=== PATIENT | female | born 1950 | race Caucasian/White ===

== ENCOUNTER 2018-06-25 10:49 | Inpatient (IN) | payer MEDICARE ==
[~2018-06-25] VITALS: Ht 162.6 cm; Wt 53.2 kg
[2018-06-25 11:30] LABS: BASO % 1 % (0-3); EOS % 0 % (0-3); HEMATOCRIT 43.7 % (36.0-47.0); HEMOGLOBIN 14.7 g/dL (12.0-15.5); LYMPH # 1.3 x10^3/uL (1.0-4.8); LYMPH % 30 % (24-48); MEAN CORPUSCULAR HEMOGLOBIN 30 pg (25-35); MEAN CORPUSCULAR HGB CONC 34 g/dL (31-37); MEAN CORPUSCULAR VOLUME 90 fL (79-100); MONO # 0.4 x10^3/uL (0.0-1.1); MONO % 10 % (0-9); NEUT # 2.6 x10^3uL (1.8-7.7); NEUT % 59 % (31-73); PLATELET COUNT 201 x10^3/uL (140-400); RED BLOOD COUNT 4.87 x10^6/uL (3.50-5.40); RED CELL DISTRIBUTION WIDTH 13.5 % (11.5-14.5); WHITE BLOOD COUNT 4.4 x10^3/uL (4.0-11.0)
[2018-06-25 11:38] LABS: BACTERIA,URINE MOD /HPF (0-FEW); BILIRUBIN,URINE NEG (NEG); CLARITY,URINE HAZY; COLOR,URINE AMBER; GLUCOSE,URINE NEG (NEG); NITRITE,URINE NEG (NEG); RBC,URINE 0 /HPF (0-2); UROBILINOGEN,URINE 2 mg/dL (0.2 mg/dL)
[2018-06-25 11:39] LABS: SQUAMOUS EPITHELIAL CELL,UR FEW /LPF
[2018-06-25 11:41] LABS: ALBUMIN 4.4 g/dL (3.4-5.0); ALBUMIN/GLOBULIN RATIO 1.5 (1.0-1.7); CREATININE 0.7 mg/dL (0.6-1.0); GFR 83.2; MAGNESIUM 2.2 mg/dL (1.8-2.4); POTASSIUM 3.4 mmol/L (3.5-5.1); TOTAL PROTEIN 7.4 g/dL (6.4-8.2)
--- NOTE | 2018-06-25 12:06 | PHYS DOC ---
Past History Past Medical History: Cancer, Dementia, High Cholesterol, Hypertension, CA Alcohol Use: None Drug Use: None Adult General Chief Complaint Chief Complaint: PSYCH EVALUATION HPI HPI 67-year-old female who was diagnosed with dementia about 3 years ago presents with some behavior issues at home. Patient has been yelling screaming trying to escape the house and very accusatory. Because of these behaviors she is not able to be handled at home. She had a urinary tract infection about 3 weeks ago and took antibiotics for this. She has not had any fever recently. She's not felt poorly recently. She's actually been eating better as of late. Family states she has lost quite a bit of weight over the last several months.[] Review of Systems Review of Systems Unable to provide review of systems secondary to dementia. Allergies Allergies Allergies Coded Allergies Type Severity Reaction Last Updated Verified Sulfa (Sulfonamide Antibiotics) Allergy Unknown 06/25/18 Yes Physical Exam Physical Exam Constitutional: Frail elderly female that appears nontoxic. [] HENT: Normocephalic, atraumatic, bilateral external ears normal, oropharynx moist, no oral exudates, nose normal. [] Eyes: PERRLA, EOMI, conjunctiva normal, no discharge. [] Neck: Normal range of motion, no tenderness, supple, no stridor. [] Cardiovascular:Heart rate regular rhythm, no murmur [] Lungs & Thorax: Bilateral breath sounds clear to auscultation [] Abdomen: Bowel sounds normal, soft, no tenderness, no masses, no pulsatile masses. [] Skin: Warm, dry, no erythema, no rash. [] Back: No tenderness, no CVA tenderness. [] Extremities: No tenderness, no cyanosis, no clubbing, ROM intact, no edema. [] Neurologic: Awake and alert but not oriented, normal motor function, normal sensory function, no focal deficits noted. [] Psychologic: Unable to assess. [] Current Patient Data Vital Signs Vital Signs Date Time Temp Pulse Resp B/P (MAP) Pulse Ox O2 Delivery O2 Flow Rate FiO2 06/25/18 11:10 97.4 67 18 99 Room Air Lab Results Laboratory Tests Test 06/25/18 11:06 06/25/18 11:17 Urine Collection Type Unknown Urine Color Lyndsey Urine Clarity Hazy Urine pH 8.5 Urine Specific [place] 1.020 Urine Protein 30 mg/dl (NEG-TRACE) Urine Glucose (UA) Neg mg/dL (NEG) Urine Ketones (Stick) Trace mg/dL (NEG) Urine Blood Neg (NEG) Urine Nitrite Neg (NEG) Urine Bilirubin Neg (NEG) Urine Urobilinogen Dipstick 2 mg/dL (0.2 mg/dL) Urine Leukocyte Esterase Large (NEG) Urine RBC 0 /HPF (0-2) Urine WBC 11-20 /HPF (0-4) Urine Squamous Epithelial Cells Few /LPF Urine Bacteria Mod /HPF (0-FEW) Urine Mucus Mod /LPF White Blood Count 4.4 x10^3/uL (4.0-11.0) Red Blood Count 4.87 x10^6/uL (3.50-5.40) Hemoglobin 14.7 g/dL (12.0-15.5) Hematocrit 43.7 % (36.0-47.0) Mean Corpuscular Volume 90 fL (79-100) Mean Corpuscular Hemoglobin 30 pg (25-35) Mean Corpuscular Hemoglobin Concent 34 g/dL (31-37) Red Cell Distribution Width 13.5 % (11.5-14.5) Platelet Count 201 x10^3/uL (140-400) Neutrophils (%) (Auto) 59 % (31-73) Lymphocytes (%) (Auto) 30 % (24-48) Monocytes (%) (Auto) 10 % (0-9) H Eosinophils (%) (Auto) 0 % (0-3) Basophils (%) (Auto) 1 % (0-3) Neutrophils # (Auto) 2.6 x10^3uL (1.8-7.7) Lymphocytes # (Auto) 1.3 x10^3/uL (1.0-4.8) Monocytes # (Auto) 0.4 x10^3/uL (0.0-1.1) Eosinophils # (Auto) 0.0 x10^3/uL (0.0-0.7) Basophils # (Auto) 0.0 x10^3/uL (0.0-0.2) Sodium Level 144 mmol/L (136-145) Potassium Level 3.4 mmol/L (3.5-5.1) L Chloride Level 106 mmol/L (98-107) Carbon Dioxide Level 29 mmol/L (21-32) Anion Gap 9 (6-14) Blood Urea Nitrogen 12 mg/dL (7-20) Creatinine 0.7 mg/dL (0.6-1.0) Estimated GFR (Cockcroft-Gault) 83.2 BUN/Creatinine Ratio 17 (6-20) Glucose Level 114 mg/dL (70-99) H Calcium Level 10.0 mg/dL (8.5-10.1) Magnesium Level 2.2 mg/dL (1.8-2.4) Total Bilirubin 1.0 mg/dL (0.2-1.0) Aspartate Amino Transferase (AST) 18 U/L (15-37) Alanine Aminotransferase (ALT) 17 U/L (14-59) Alkaline Phosphatase 62 U/L (46-116) Total Protein 7.4 g/dL (6.4-8.2) Albumin 4.4 g/dL (3.4-5.0) Albumin/Globulin Ratio 1.5 (1.0-1.7) EKG EKG [] Radiology/Procedures Radiology/Procedures [] Course & Med Decision Making Course & Med Decision Making Pertinent Labs and Imaging studies reviewed. (See chart for details) [ED course: Evaluation reveals a 67-year-old female with dementia. She did have urinary tract infection a few weeks ago. It looks like she still has a few white blood cells and some bacteria in her urine so go ahead and] Dragon Disclaimer Dragon Disclaimer This electronic medical record was generated, in whole or in part, using a voice recognition dictation system. Departure Departure: Impression: Primary Impression: Dementia Additional Impression: UTI (urinary tract infection) Disposition: 09 ADMITTED INPATIENT Admitting Physician: Joon Alvarez Condition: STABLE Referrals: LIA GALAN MD (PCP) Problem Qualifiers Primary Impression: Dementia Dementia type: Alzheimer's disease Alzheimer's disease onset: early-onset Dementia behavioral disturbance: with behavioral disturbance Qualified Codes: G30.0 - Alzheimer's disease with early onset; F02.81 - Dementia in other diseases classified elsewhere with behavioral disturbance VIRGINIA ROMERO DO Jun 25, 2018 12:06
[2018-06-25] MEDS ORDERED: NITROFURANTOIN MONOHYD/M-CRYST 100 MG CAPSULE. PO ONE (12:30)
[2018-06-25] MEDS ORDERED: LISI-338 PO (14:03)
[2018-06-25] MEDS ORDERED: LORA0.5T PO (14:03)
[2018-06-25] MEDS ORDERED: MIRT15TA3 PO (14:03)
[2018-06-25] MEDS ORDERED: ASPI-630 PO (14:03)
[2018-06-25] MEDS ORDERED: METO25TA4 PO (14:03)
[2018-06-25] MEDS ORDERED: ATOR40TA59 PO (14:03)
[2018-06-25 14:30] VITALS: BP 122/75
[2018-06-25] MEDS ORDERED: MAG HYDROX/AL HYDROX/SIMETH 30 ML ORAL.SUSP PO PRN (15:00)
[2018-06-25] MEDS ORDERED: MAGNESIUM HYDROXIDE 2,400 MG/30 ML ORAL.SUSP. PO PRN (15:00)
[2018-06-25] MEDS ORDERED: ACETAMINOPHEN 325 MG TABLET PO PRN (15:00)
[2018-06-25] MEDS ORDERED: METHYL SALICYLATE/MENTHOL TOPICAL OINTMENT 29GM TUBE. TP PRN (15:00)
[2018-06-25 16:07] VITALS: BP 120/76
[2018-06-25] MEDS: MIRTAZAPINE 15 MG TABLET PO SCH (20:55)
[2018-06-25] MEDS: METOPROLOL TART IMMED RELEASE 25 MG TABLET PO SCH (20:55)
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
[2018-06-26 02:12] LABS: THYROXINE 8.7 ug/dL (4.5-12.0)
[2018-06-26 06:13] LABS: HEMOGLOBIN A1C 5.3 % (4.8-5.6)
[2018-06-26 07:00] VITALS: BP 102/68
[2018-06-26] MEDS: LORazepam 0.5 MG TABLET PO SCH (08:00)
[2018-06-26 09:37] LABS: BASO % 1 % (0-3); EOS % 0 % (0-3); HEMATOCRIT 46.1 % (36.0-47.0); HEMOGLOBIN 15.2 g/dL (12.0-15.5); LYMPH # 1.3 x10^3/uL (1.0-4.8); LYMPH % 15 % (24-48); MEAN CORPUSCULAR HEMOGLOBIN 30 pg (25-35); MEAN CORPUSCULAR HGB CONC 33 g/dL (31-37); MEAN CORPUSCULAR VOLUME 90 fL (79-100); MONO # 1.1 x10^3/uL (0.0-1.1); MONO % 13 % (0-9); NEUT # 6.1 x10^3uL (1.8-7.7); NEUT % 72 % (31-73); PLATELET COUNT 219 x10^3/uL (140-400); RED BLOOD COUNT 5.15 x10^6/uL (3.50-5.40); RED CELL DISTRIBUTION WIDTH 13.7 % (11.5-14.5); WHITE BLOOD COUNT 8.5 x10^3/uL (4.0-11.0)
[2018-06-26 09:51] LABS: ALBUMIN 4.6 g/dL (3.4-5.0); ALBUMIN/GLOBULIN RATIO 1.4 (1.0-1.7); CALCIUM 10.3 mg/dL (8.5-10.1); CREATININE 0.6 mg/dL (0.6-1.0); GFR 99.4; MAGNESIUM 2.1 mg/dL (1.8-2.4); POTASSIUM 3.6 mmol/L (3.5-5.1); TOTAL BILIRUBIN 0.8 mg/dL (0.2-1.0); TOTAL PROTEIN 7.8 g/dL (6.4-8.2)
[2018-06-26] MEDS: ASPIRIN 81 MG TAB.CHEW PO SCH (10:27)
[2018-06-26] MEDS: ATORVASTATIN CALCIUM 20 MG TABLET PO SCH (10:27)
[2018-06-26] MEDS: LISINOPRIL 5 MG TABLET. PO SCH (10:28)
[2018-06-26] MEDS: METOPROLOL TART IMMED RELEASE 25 MG TABLET PO SCH ×2 (10:28→20:32)
[2018-06-26 16:53] VITALS: BP 113/77
[2018-06-26] MEDS: MIRTAZAPINE 15 MG TABLET PO SCH (20:31)
[2018-06-26] MEDS: OLANZapine 10 MG TABLET PO SCH (20:32)
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
[2018-06-27] MEDS: ATORVASTATIN CALCIUM 20 MG TABLET PO SCH (08:11)
[2018-06-27] MEDS: METOPROLOL TART IMMED RELEASE 25 MG TABLET PO SCH ×2 (08:11→20:08)
[2018-06-27] MEDS: ASPIRIN 81 MG TAB.CHEW PO SCH (08:11)
[2018-06-27] MEDS: LISINOPRIL 5 MG TABLET. PO SCH (08:12)
[2018-06-27] MEDS: LORazepam 0.5 MG TABLET PO SCH (08:14)
[2018-06-27 10:14] LABS: THYROID STIM HORMONE (TSH) 0.503 uIU/mL (0.358-3.740)
[2018-06-27 10:48] VITALS: BP 113/77
--- NOTE | 2018-06-27 12:40 | EKG ---
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
[2018-06-27 16:16] VITALS: BP 96/64
[2018-06-27] MEDS: OLANZapine 10 MG TABLET PO SCH (20:07)
[2018-06-27] MEDS: MIRTAZAPINE 15 MG TABLET PO SCH (20:07)
--- NOTE | 2018-06-27 23:41 | PN ---
DATE: 06/27/2018 SUBJECTIVE: The patient was seen today, met with the staff, chart reviewed. The patient apparently has made some progress. Still agitated easily and difficult to redirect, apparently she did not sleep well last night. OBSERVATION: VITAL SIGNS: Temperature 97.5, blood pressure 96/64, pulse 81, respiration 18, O2 sat 98%. The patient's appetite is fair. MEDICATIONS: The patient's current medications include mirtazapine, was increased from 15 to 22.5 mg at night because she is not sleeping well; Zyprexa 10 mg at night, lorazepam 0.5 mg daily. She is also on olanzapine 2.5 mg q. 2 hours p.r.n. The patient is not having any major side effects. The patient's lab reviewed. Glucose level was 120. Hemoglobin A1c 5.3, calcium 10.3. Otherwise no lab abnormalities. ASSESSMENT: 1. Dementia, most likely Alzheimer's with behavior problems, with delusions and depression. 2. Impulse control disorder, unspecified. PLAN: To continue with the treatment. We will consider adding a mood stabilizer if the patient continues to show major behavior problems. PAOLA MENDIOLA MD DR: FERNANDO/reji JOB#: [id number] / [id number]
[2018-06-28 05:52] VITALS: BP 117/81
[2018-06-28] MEDS: LISINOPRIL 5 MG TABLET. PO SCH (08:17)
[2018-06-28] MEDS: ASPIRIN 81 MG TAB.CHEW PO SCH (08:17)
[2018-06-28] MEDS: METOPROLOL TART IMMED RELEASE 25 MG TABLET PO SCH ×2 (08:18→19:11)
[2018-06-28] MEDS: ATORVASTATIN CALCIUM 20 MG TABLET PO SCH (08:18)
[2018-06-28] MEDS: LORazepam 0.5 MG TABLET PO SCH (08:20)
[2018-06-28 16:10] VITALS: BP 98/66
[2018-06-28] MEDS: OLANZapine 10 MG TABLET PO SCH (19:11)
[2018-06-28] MEDS: MIRTAZAPINE 15 MG TABLET PO SCH (19:12)
[2018-06-28] MEDS: CEFDINIR 300 MG CAPSULE PO SCH (20:02)
[2018-06-28] MEDS: LORazepam 0.5 MG TABLET PO PRN (21:21)
--- NOTE | 2018-06-28 22:58 | PN ---
DATE: 06/28/2018 SUBJECTIVE: The patient was seen today, met with the staff, chart reviewed. Staff reports the patient having some problems with her gait and also stooping to one side. The patient did not have any falls. She continues to be agitated easily, difficult to redirect. OBJECTIVE: VITAL SIGNS: Temperature 96.8, blood pressure 117/81, pulse 74, respiration 18, O2 sat 93%. Slept only 2 hours last night. CURRENT MEDICATIONS: The patient's current medications include Zyprexa 10 mg at night, lorazepam 0.5 mg daily, mirtazapine 22.5 mg at night and also olanzapine 2.5 mg q. 2-4 hours p.r.n. The patient is not having any other side effects. LABORATORY DATA: The patient's lab reviewed. ASSESSMENT: Dementia, most likely Alzheimer's with behavior problems with the delusions and depression. Impulse control disorder, unspecified. PLAN: To continue with the treatment. PAOLA MENDIOLA MD DR: FERNANDO/reji JOB#: [id number] / [id number]
[2018-06-29 05:45] VITALS: BP 90/54
[2018-06-29] MEDS: METOPROLOL TART IMMED RELEASE 25 MG TABLET PO SCH ×2 (07:18→19:25)
[2018-06-29] MEDS: CEFDINIR 300 MG CAPSULE PO SCH ×2 (07:18→19:26)
[2018-06-29] MEDS: ASPIRIN 81 MG TAB.CHEW PO SCH (07:18)
[2018-06-29] MEDS: ATORVASTATIN CALCIUM 20 MG TABLET PO SCH (07:18)
[2018-06-29] MEDS: LISINOPRIL 5 MG TABLET. PO SCH (07:19)
[2018-06-29] MEDS: LORazepam 0.5 MG TABLET PO SCH (07:22)
[2018-06-29] MEDS: LORazepam 0.5 MG TABLET PO PRN (11:20)
[2018-06-29 16:04] VITALS: BP 119/78
--- NOTE | 2018-06-29 16:15 | PN ---
DATE: 06/29/2018 SUBJECTIVE: The patient was seen today, met with the staff, chart reviewed. The patient's behavior remains the same, tends to wander, confused, periods of agitation and difficult to redirect. OBSERVATION: VITAL SIGNS: Temperature 97.2, blood pressure 90/54, pulse 64, respirations 20, O2 sat 95%. Slept about 6 hours last night. The patient is not presenting with any major medical issues at this time. No recent falls. The patient's appetite has improved. MEDICATIONS: The patient's current medications include Zyprexa 10 mg at night, lorazepam 0.5 mg daily, mirtazapine 22.5 mg at night, and olanzapine 2.5 mg q. 24 hours p.r.n. The patient's lab reviewed. ASSESSMENT: 1. Dementia, most likely Alzheimer's with behavior problems, delusions and depression. 2. Impulse control disorder, unspecified. PLAN: To continue with the treatment. PAOLA MENDIOLA MD DR: FERNANDO/reji JOB#: [id number] / [id number]
[2018-06-29] MEDS: MIRTAZAPINE 15 MG TABLET PO SCH (19:26)
[2018-06-29] MEDS: OLANZapine 10 MG TABLET PO SCH (19:37)
[2018-06-29] MEDS: LACTOBACILLUS RHAMNOSUS GG 1 CAPSULE. PO SCH (19:37)
[2018-06-30 05:14] VITALS: BP 125/94
[2018-06-30] MEDS: LORazepam 0.5 MG TABLET PO PRN (05:51)
[2018-06-30] MEDS: METOPROLOL TART IMMED RELEASE 25 MG TABLET PO SCH ×3 (07:22→19:44)
[2018-06-30] MEDS: LACTOBACILLUS RHAMNOSUS GG 1 CAPSULE. PO SCH ×3 (07:23→19:43)
[2018-06-30] MEDS: ASPIRIN 81 MG TAB.CHEW PO SCH ×2 (07:23→08:00)
[2018-06-30] MEDS: CEFDINIR 300 MG CAPSULE PO SCH ×3 (07:23→19:43)
[2018-06-30] MEDS: ATORVASTATIN CALCIUM 20 MG TABLET PO SCH ×2 (07:23→09:00)
[2018-06-30] MEDS: LISINOPRIL 5 MG TABLET. PO SCH ×2 (07:23→09:00)
[2018-06-30] MEDS: LORazepam 0.5 MG TABLET PO SCH (07:24)
[2018-06-30 15:14] VITALS: BP 127/89
[2018-06-30] MEDS: MIRTAZAPINE 15 MG TABLET PO SCH (19:42)
[2018-06-30] MEDS: OLANZapine 10 MG TABLET PO SCH (19:43)
[2018-06-30] MEDS: DIVALPROEX 125 MG CAP.SPRINK PO SCH (19:48)
[2018-06-30] MEDS: BENZTROPINE MESYLATE 0.5 MG TABLET PO SCH (19:48)
--- NOTE | 2018-06-30 22:23 | PDOC ---
Exam Note: Estuardo Note: Please also refer to the separate dictated note~for this date of service dictated separately. Discussed the patient with Nursing staff reviewed the chart.~Reviewed interim history and current functioning. Reviewed vital signs,~ Labs/ Radiology~and current medications noted below. Continue current treatment with the changes noted in the dictated addendum note Assessment: Vital Signs: Vital Signs Date Time Temp Pulse Resp B/P (MAP) Pulse Ox O2 Delivery O2 Flow Rate FiO2 06/30/18 19:44 101 127/89 06/30/18 15:14 97.0 18 96 Room Air I&O Intake and Output 06/30/18 07:00 Intake Total 480 ml Balance 480 ml Intake Oral 480 ml Current Medications: Meds: Current Medications Nitrofurantoin Macrocrystals (Macrobid) 100 mg 1X ONCE PO Last administered on 06/25/18at 12:23; Start 06/25/18 at 12:30; Stop 06/25/18 at 12:31; Status DC Metoprolol Tartrate (Lopressor) 25 mg BID PO Last administered on 06/30/18at 19: 44; Start 06/25/18 at 21:00 Aspirin (Children'S Aspirin) 81 mg DAILYWBKFT PO Last administered on at 07:18; Start 06/26/18 at 08:00 Lisinopril (Prinivil) 5 mg DAILY PO Last administered on 06/28/18at 08:17; Start 06/26/18 at 09:00 Atorvastatin Calcium (Lipitor) 40 mg DAILY PO Last administered on 06/29/18at 07 :18; Start 06/26/18 at 09:00 Lorazepam (Ativan) 0.5 mg DAILY PO Last administered on 06/30/18at 07:24; Start 06/26/18 at 09:00 Mirtazapine (Remeron) 15 mg QHS PO Last administered on 06/26/18at 20:31; Start 06/25/18 at 21:00; Stop 06/27/18 at 16:44; Status DC Acetaminophen (Tylenol) 650 mg PRN Q6HRS PRN PO PAIN / TEMP; Start 06/25/18 at 15:00 Multi-Ingredient Ointment (Analgesic [place]) 1 bunny PRN QID PRN TP MUSCLE PAIN; Start 06/25/18 at 15:00 Al Hydroxide/Mg Hydroxide (Mylanta Plus Xs) 15 ml PRN AFTMEALHC PRN PO DYSPEPSIA; Start 06/25/18 at 15:00 Magnesium Hydroxide (Milk Of Magnesia) 2,400 mg PRN QHS PRN PO CONSTIPATION; Start 06/25/18 at 15:00 Olanzapine (ZyPREXA ZYDIS) 2.5 mg PRN DAILY PRN PO agitation/anxiey Last administered on 06/25/18at 20:55; Start 06/25/18 at 17:00; Stop 06/25/18 at 23:25 ; Status DC Olanzapine (ZyPREXA ZYDIS) 2.5 mg PRN Q2HR PRN PO agitation/anxiey Last administered on 06/30/18 05:51; Start 06/25/18 at 23:30 Lorazepam (Ativan) 0.5 mg PRN Q4HRS PRN PO ANXIETY / AGITATION Last administered on 06/30/18 05:51; Start 06/25/18 at 23:30 Olanzapine (ZyPREXA) 10 mg HS PO Last administered on 06/30/18at 19:43; Start at 21:00 Mirtazapine (Remeron) 22.5 mg QHS PO Last administered on 06/30/18 19:42; Start 06/27/18 at 21:00 Cefdinir (Omnicef) 300 mg BID PO Last administered on 06/30/18 19:43; Start at 21:00; Stop 07/06/18 at 20:59 Lactobacillus Rhamnosus (Culturelle) 1 cap BID PO Last administered on 19:43; Start 06/29/18 at 21:00 Benztropine Mesylate (Cogentin) 0.5 mg BID PO Last administered on 06/30/18 19 :48; Start 06/30/18 at 21:00 Divalproex Sodium (Depakote Sprinkles) 125 mg BID PO Last administered on 19:48; Start 06/30/18 at 21:00 Active Scripts Active Reported Mirtazapine 15 Mg Tablet 15 Mg PO QHS Metoprolol Tartrate 25 Mg Tablet 25 Mg PO BID Lorazepam 0.5 Mg Tablet 0.5 Mg PO DAILY Lisinopril 5 Mg Tablet 5 Mg PO DAILY Atorvastatin Calcium 40 Mg Tablet 40 Mg PO DAILY Aspirin 81 Mg Tab.chew 81 Mg PO DAILY I have reviewed the current psychotropics carefully including drug interactions. Risk benefit ratio favors no change other than as noted in my dictated progress note. COLTON TAYLOR MD Jun 30, 2018 22:23
--- NOTE | 2018-06-30 23:30 | PN ---
DATE: 06/30/2018 SUBJECTIVE: The patient was seen today, met with the staff, chart reviewed. The patient continues to have problems with behaviors, tends to become aggressive at times, decreased appetite and also the patient has some spasm of the upper extremities, tends to fall to one side. The patient does not have any other signs of EPS. The patient has been a management problem. OBSERVATION: VITAL SIGNS: Temperature 97.5, blood pressure 125/94, pulse 73, respirations 16, O2 sat 96%. Slept about 5 hours last night. MEDICATIONS: The patient's current medications include Zyprexa 10 mg at night, lorazepam 0.5 mg daily, mirtazapine 22.5 mg at night, and olanzapine 2.5 mg q. 24 hours p.r.n. The patient's lab reviewed. ASSESSMENT: 1. Dementia, most likely Alzheimer's with behavior problems, delusions and depression. 2. Impulse control disorder, unspecified. PLAN: Continue with the treatment and also we started on Cogentin 0.5 mg b.i.d. for her muscle spasms and stiffness. The patient also started on Depakote Sprinkles 125 mg b.i.d. PAOLA MENDIOLA MD DR: FERNANDO/reji JOB#: [id number] / [id number]
[2018-07-01 06:25] VITALS: BP 110/62
[2018-07-01] MEDS: ATORVASTATIN CALCIUM 20 MG TABLET PO SCH (07:18)
[2018-07-01] MEDS: CEFDINIR 300 MG CAPSULE PO SCH ×2 (07:18→19:14)
[2018-07-01] MEDS: BENZTROPINE MESYLATE 0.5 MG TABLET PO SCH ×2 (07:18→19:13)
[2018-07-01] MEDS: LISINOPRIL 5 MG TABLET. PO SCH (07:19)
[2018-07-01] MEDS: ASPIRIN 81 MG TAB.CHEW PO SCH (07:19)
[2018-07-01] MEDS: DIVALPROEX 125 MG CAP.SPRINK PO SCH ×2 (07:19→19:14)
[2018-07-01] MEDS: METOPROLOL TART IMMED RELEASE 25 MG TABLET PO SCH ×2 (07:19→19:14)
[2018-07-01] MEDS: LACTOBACILLUS RHAMNOSUS GG 1 CAPSULE. PO SCH ×2 (07:19→19:14)
[2018-07-01] MEDS: LORazepam 0.5 MG TABLET PO SCH ×2 (07:23→15:59)
[2018-07-01] MEDS ORDERED: IV DEXTROSE 5%-LACT RINGERS 1,000 ML IV ONE (17:30)
[2018-07-01 17:33] VITALS: BP 88/64
[2018-07-01 17:43] LABS: BASO % 0 % (0-3); EOS % 0 % (0-3); HEMOGLOBIN 13.9 g/dL (12.0-15.5); LYMPH # 1.4 x10^3/uL (1.0-4.8); LYMPH % 18 % (24-48); MEAN CORPUSCULAR HEMOGLOBIN 30 pg (25-35); MEAN CORPUSCULAR HGB CONC 33 g/dL (31-37); MEAN CORPUSCULAR VOLUME 90 fL (79-100); MONO # 0.8 x10^3/uL (0.0-1.1); MONO % 10 % (0-9); NEUT # 5.7 x10^3uL (1.8-7.7); NEUT % 72 % (31-73); PLATELET COUNT 208 x10^3/uL (140-400); RED BLOOD COUNT 4.66 x10^6/uL (3.50-5.40); RED CELL DISTRIBUTION WIDTH 13.4 % (11.5-14.5); WHITE BLOOD COUNT 7.9 x10^3/uL (4.0-11.0)
[2018-07-01 18:10] LABS: ALBUMIN 3.8 g/dL (3.4-5.0); ALBUMIN/GLOBULIN RATIO 1.3 (1.0-1.7); CALCIUM 9.9 mg/dL (8.5-10.1); CREATININE 0.9 mg/dL (0.6-1.0); GFR 62.3; POTASSIUM 3.3 mmol/L (3.5-5.1); TOTAL BILIRUBIN 0.8 mg/dL (0.2-1.0); TOTAL PROTEIN 6.7 g/dL (6.4-8.2)
[2018-07-01] MEDS ORDERED: POTASSIUM CHLORIDE 20 MEQ TABLET.ER. PO ONE (18:30)
[2018-07-01] MEDS: MIRTAZAPINE 15 MG TABLET PO SCH (19:15)
[2018-07-01] MEDS: OLANZapine 10 MG TABLET PO SCH (19:15)
--- NOTE | 2018-07-01 22:11 | PDOC ---
Exam Note: Estuardo Note: "This is a late entry for 06/30/18. The template note for 06/30/18 was completed in error and should be disregarded." Please also refer to the separate dictated note~for this date of service dictated separately.~Patient seen individually. Discussed the patient with Nursing staff reviewed the chart.~ Reviewed interim history and current functioning. Reviewed vital signs,~Labs/ Radiology~and current medications noted below. Continue current treatment with the changes noted in the dictated addendum note Assessment: Vital Signs: Vital Signs Date Time Temp Pulse Resp B/P (MAP) Pulse Ox O2 Delivery O2 Flow Rate FiO2 07/01/18 19:14 101 88/64 07/01/18 17:33 97.1 18 94 06/30/18 15:14 Room Air I&O Intake and Output 07/01/18 06:59 Intake Total 340 ml Balance 340 ml Intake Oral 340 ml Labs: Laboratory Tests Test 07/01/18 17:35 White Blood Count 7.9 x10^3/uL (4.0-11.0) Red Blood Count 4.66 x10^6/uL (3.50-5.40) Hemoglobin 13.9 g/dL (12.0-15.5) Hematocrit 42.0 % (36.0-47.0) Mean Corpuscular Volume 90 fL (79-100) Mean Corpuscular Hemoglobin 30 pg (25-35) Mean Corpuscular Hemoglobin Concent 33 g/dL (31-37) Red Cell Distribution Width 13.4 % (11.5-14.5) Platelet Count 208 x10^3/uL (140-400) Neutrophils (%) (Auto) 72 % (31-73) Lymphocytes (%) (Auto) 18 % (24-48) L Monocytes (%) (Auto) 10 % (0-9) H Eosinophils (%) (Auto) 0 % (0-3) Basophils (%) (Auto) 0 % (0-3) Neutrophils # (Auto) 5.7 x10^3uL (1.8-7.7) Lymphocytes # (Auto) 1.4 x10^3/uL (1.0-4.8) Monocytes # (Auto) 0.8 x10^3/uL (0.0-1.1) Eosinophils # (Auto) 0.0 x10^3/uL (0.0-0.7) Basophils # (Auto) 0.0 x10^3/uL (0.0-0.2) Sodium Level 148 mmol/L (136-145) H Potassium Level 3.3 mmol/L (3.5-5.1) L Chloride Level 108 mmol/L (98-107) H Carbon Dioxide Level 32 mmol/L (21-32) Anion Gap 8 (6-14) Blood Urea Nitrogen 30 mg/dL (7-20) H Creatinine 0.9 mg/dL (0.6-1.0) Estimated GFR (Cockcroft-Gault) 62.3 BUN/Creatinine Ratio 33 (6-20) H Glucose Level 151 mg/dL (70-99) H Calcium Level 9.9 mg/dL (8.5-10.1) Total Bilirubin 0.8 mg/dL (0.2-1.0) Aspartate Amino Transferase (AST) 48 U/L (15-37) H Alanine Aminotransferase (ALT) 39 U/L (14-59) Alkaline Phosphatase 54 U/L (46-116) Total Protein 6.7 g/dL (6.4-8.2) Albumin 3.8 g/dL (3.4-5.0) Albumin/Globulin Ratio 1.3 (1.0-1.7) Current Medications: Meds: Current Medications Nitrofurantoin Macrocrystals (Macrobid) 100 mg 1X ONCE PO Last administered on 06/25/18at 12:23; Start 06/25/18 at 12:30; Stop 06/25/18 at 12:31; Status DC Metoprolol Tartrate (Lopressor) 25 mg BID PO Last administered on 07/01/18at 07: 19; Start 06/25/18 at 21:00 Aspirin (Children'S Aspirin) 81 mg DAILYWBKFT PO Last administered on 07:19; Start 06/26/18 at 08:00 Lisinopril (Prinivil) 5 mg DAILY PO Last administered on 07/01/18 07:19; Start 06/26/18 at 09:00 Atorvastatin Calcium (Lipitor) 40 mg DAILY PO Last administered on 07/01/18at 07 :18; Start 06/26/18 at 09:00 Lorazepam (Ativan) 0.5 mg DAILY PO Last administered on 07/01/18 07:23; Start 06/26/18 at 09:00 Mirtazapine (Remeron) 15 mg QHS PO Last administered on 06/26/18 20:31; Start 06/25/18 at 21:00; Stop 06/27/18 at 16:44; Status DC Acetaminophen (Tylenol) 650 mg PRN Q6HRS PRN PO PAIN / TEMP; Start 06/25/18 at 15:00 Multi-Ingredient Ointment (Analgesic [place]) 1 bunny PRN QID PRN TP MUSCLE PAIN; Start 06/25/18 at 15:00 Al Hydroxide/Mg Hydroxide (Mylanta Plus Xs) 15 ml PRN AFTMEALHC PRN PO DYSPEPSIA; Start 06/25/18 at 15:00 Magnesium Hydroxide (Milk Of Magnesia) 2,400 mg PRN QHS PRN PO CONSTIPATION; Start 06/25/18 at 15:00 Olanzapine (ZyPREXA ZYDIS) 2.5 mg PRN DAILY PRN PO agitation/anxiey Last administered on 06/25/18at 20:55; Start 06/25/18 at 17:00; Stop 06/25/18 at 23:25 ; Status DC Olanzapine (ZyPREXA ZYDIS) 2.5 mg PRN Q2HR PRN PO agitation/anxiey Last administered on 07/01/18at 15:42; Start 06/25/18 at 23:30 Lorazepam (Ativan) 0.5 mg PRN Q4HRS PRN PO ANXIETY / AGITATION Last administered on 06/30/18at 05:51; Start 06/25/18 at 23:30 Olanzapine (ZyPREXA) 10 mg HS PO Last administered on 07/01/18 19:15; Start at 21:00 Mirtazapine (Remeron) 22.5 mg QHS PO Last administered on 07/01/18 19:15; Start 06/27/18 at 21:00 Cefdinir (Omnicef) 300 mg BID PO Last administered on 07/01/18 19:14; Start at 21:00; Stop 07/06/18 at 20:59 Lactobacillus Rhamnosus (Culturelle) 1 cap BID PO Last administered on 19:14; Start 06/29/18 at 21:00 Benztropine Mesylate (Cogentin) 0.5 mg BID PO Last administered on 07/01/18 19 :13; Start 06/30/18 at 21:00 Divalproex Sodium (Depakote Sprinkles) 125 mg BID PO Last administered on 19:14; Start 06/30/18 at 21:00 Dextrose/Lactated Ringer's 1,000 ml @ 200 mls/hr 1X ONCE IV Last administered on 07/01/18 17:29; Start 07/01/18 at 17:30; Stop 07/01/18 at 22:29 Potassium Chloride (Klor-Con) 40 meq 1X ONCE PO Last administered on 19:13; Start 07/01/18 at 18:30; Stop 07/01/18 at 18:31; Status DC Active Scripts Active Reported Mirtazapine 15 Mg Tablet 15 Mg PO QHS Metoprolol Tartrate 25 Mg Tablet 25 Mg PO BID Lorazepam 0.5 Mg Tablet 0.5 Mg PO DAILY Lisinopril 5 Mg Tablet 5 Mg PO DAILY Atorvastatin Calcium 40 Mg Tablet 40 Mg PO DAILY Aspirin 81 Mg Tab.chew 81 Mg PO DAILY I have reviewed the current psychotropics carefully including drug interactions. Risk benefit ratio favors no change other than as noted in my dictated progress note. COLTON TAYLOR MD Jul 01, 2018 22:11
--- NOTE | 2018-07-01 22:59 | PDOC ---
Exam Note: Estuardo Note: Please also refer to the separate dictated note~for this date of service dictated separately.~Patient seen individually. Discussed the patient with Nursing staff reviewed the chart.~Reviewed interim history and current functioning. Reviewed vital signs,~Labs/ Radiology~and current medications noted below. Continue current treatment with the changes noted in the dictated addendum note Assessment: Vital Signs: Vital Signs Date Time Temp Pulse Resp B/P (MAP) Pulse Ox O2 Delivery O2 Flow Rate FiO2 07/01/18 19:14 101 88/64 07/01/18 17:33 97.1 18 94 06/30/18 15:14 Room Air I&O Intake and Output 07/01/18 07:00 Intake Total 340 ml Balance 340 ml Intake Oral 340 ml Labs: Laboratory Tests Test 07/01/18 17:35 White Blood Count 7.9 x10^3/uL (4.0-11.0) Red Blood Count 4.66 x10^6/uL (3.50-5.40) Hemoglobin 13.9 g/dL (12.0-15.5) Hematocrit 42.0 % (36.0-47.0) Mean Corpuscular Volume 90 fL (79-100) Mean Corpuscular Hemoglobin 30 pg (25-35) Mean Corpuscular Hemoglobin Concent 33 g/dL (31-37) Red Cell Distribution Width 13.4 % (11.5-14.5) Platelet Count 208 x10^3/uL (140-400) Neutrophils (%) (Auto) 72 % (31-73) Lymphocytes (%) (Auto) 18 % (24-48) L Monocytes (%) (Auto) 10 % (0-9) H Eosinophils (%) (Auto) 0 % (0-3) Basophils (%) (Auto) 0 % (0-3) Neutrophils # (Auto) 5.7 x10^3uL (1.8-7.7) Lymphocytes # (Auto) 1.4 x10^3/uL (1.0-4.8) Monocytes # (Auto) 0.8 x10^3/uL (0.0-1.1) Eosinophils # (Auto) 0.0 x10^3/uL (0.0-0.7) Basophils # (Auto) 0.0 x10^3/uL (0.0-0.2) Sodium Level 148 mmol/L (136-145) H Potassium Level 3.3 mmol/L (3.5-5.1) L Chloride Level 108 mmol/L (98-107) H Carbon Dioxide Level 32 mmol/L (21-32) Anion Gap 8 (6-14) Blood Urea Nitrogen 30 mg/dL (7-20) H Creatinine 0.9 mg/dL (0.6-1.0) Estimated GFR (Cockcroft-Gault) 62.3 BUN/Creatinine Ratio 33 (6-20) H Glucose Level 151 mg/dL (70-99) H Calcium Level 9.9 mg/dL (8.5-10.1) Total Bilirubin 0.8 mg/dL (0.2-1.0) Aspartate Amino Transferase (AST) 48 U/L (15-37) H Alanine Aminotransferase (ALT) 39 U/L (14-59) Alkaline Phosphatase 54 U/L (46-116) Total Protein 6.7 g/dL (6.4-8.2) Albumin 3.8 g/dL (3.4-5.0) Albumin/Globulin Ratio 1.3 (1.0-1.7) Current Medications: Meds: Current Medications Nitrofurantoin Macrocrystals (Macrobid) 100 mg 1X ONCE PO Last administered on 06/25/18at 12:23; Start 06/25/18 at 12:30; Stop 06/25/18 at 12:31; Status DC Metoprolol Tartrate (Lopressor) 25 mg BID PO Last administered on 07/01/18at 07: 19; Start 06/25/18 at 21:00 Aspirin (Children'S Aspirin) 81 mg DAILYWBKFT PO Last administered on 07:19; Start 06/26/18 at 08:00 Lisinopril (Prinivil) 5 mg DAILY PO Last administered on 07/01/18 07:19; Start 06/26/18 at 09:00 Atorvastatin Calcium (Lipitor) 40 mg DAILY PO Last administered on 07/01/18at 07 :18; Start 06/26/18 at 09:00 Lorazepam (Ativan) 0.5 mg DAILY PO Last administered on 07/01/18at 07:23; Start 06/26/18 at 09:00 Mirtazapine (Remeron) 15 mg QHS PO Last administered on 06/26/18at 20:31; Start 06/25/18 at 21:00; Stop 06/27/18 at 16:44; Status DC Acetaminophen (Tylenol) 650 mg PRN Q6HRS PRN PO PAIN / TEMP; Start 06/25/18 at 15:00 Multi-Ingredient Ointment (Analgesic [place]) 1 bunny PRN QID PRN TP MUSCLE PAIN; Start 06/25/18 at 15:00 Al Hydroxide/Mg Hydroxide (Mylanta Plus Xs) 15 ml PRN AFTMEALHC PRN PO DYSPEPSIA; Start 06/25/18 at 15:00 Magnesium Hydroxide (Milk Of Magnesia) 2,400 mg PRN QHS PRN PO CONSTIPATION; Start 06/25/18 at 15:00 Olanzapine (ZyPREXA ZYDIS) 2.5 mg PRN DAILY PRN PO agitation/anxiey Last administered on 06/25/18at 20:55; Start 06/25/18 at 17:00; Stop 06/25/18 at 23:25 ; Status DC Olanzapine (ZyPREXA ZYDIS) 2.5 mg PRN Q2HR PRN PO agitation/anxiey Last administered on 07/01/18at 15:42; Start 06/25/18 at 23:30 Lorazepam (Ativan) 0.5 mg PRN Q4HRS PRN PO ANXIETY / AGITATION Last administered on 06/30/18at 05:51; Start 06/25/18 at 23:30 Olanzapine (ZyPREXA) 10 mg HS PO Last administered on 07/01/18at 19:15; Start at 21:00 Mirtazapine (Remeron) 22.5 mg QHS PO Last administered on 07/01/18 19:15; Start 06/27/18 at 21:00 Cefdinir (Omnicef) 300 mg BID PO Last administered on 07/01/18 19:14; Start at 21:00; Stop 07/06/18 at 20:59 Lactobacillus Rhamnosus (Culturelle) 1 cap BID PO Last administered on at 19:14; Start 06/29/18 at 21:00 Benztropine Mesylate (Cogentin) 0.5 mg BID PO Last administered on 07/01/18 19 :13; Start 06/30/18 at 21:00 Divalproex Sodium (Depakote Sprinkles) 125 mg BID PO Last administered on at 19:14; Start 06/30/18 at 21:00 Dextrose/Lactated Ringer's 1,000 ml @ 200 mls/hr 1X ONCE IV Last administered on 07/01/18 17:29; Start 07/01/18 at 17:30; Stop 07/01/18 at 22:29 ; Status DC Potassium Chloride (Klor-Con) 40 meq 1X ONCE PO Last administered on 19:13; Start 07/01/18 at 18:30; Stop 07/01/18 at 18:31; Status DC Active Scripts Active Reported Mirtazapine 15 Mg Tablet 15 Mg PO QHS Metoprolol Tartrate 25 Mg Tablet 25 Mg PO BID Lorazepam 0.5 Mg Tablet 0.5 Mg PO DAILY Lisinopril 5 Mg Tablet 5 Mg PO DAILY Atorvastatin Calcium 40 Mg Tablet 40 Mg PO DAILY Aspirin 81 Mg Tab.chew 81 Mg PO DAILY I have reviewed the current psychotropics carefully including drug interactions. Risk benefit ratio favors no change other than as noted in my dictated progress note. COLTON TAYLOR MD Jul 01, 2018 22:59
[2018-07-02 06:14] VITALS: BP 110/74
[2018-07-02 07:19] LABS: BASO % 1 % (0-3); EOS % 1 % (0-3); HEMATOCRIT 40.5 % (36.0-47.0); HEMOGLOBIN 13.5 g/dL (12.0-15.5); LYMPH # 1.9 x10^3/uL (1.0-4.8); LYMPH % 30 % (24-48); MEAN CORPUSCULAR HEMOGLOBIN 30 pg (25-35); MEAN CORPUSCULAR HGB CONC 33 g/dL (31-37); MEAN CORPUSCULAR VOLUME 91 fL (79-100); MONO # 0.8 x10^3/uL (0.0-1.1); MONO % 13 % (0-9); NEUT # 3.5 x10^3uL (1.8-7.7); NEUT % 55 % (31-73); PLATELET COUNT 200 x10^3/uL (140-400); RED BLOOD COUNT 4.47 x10^6/uL (3.50-5.40); RED CELL DISTRIBUTION WIDTH 13.6 % (11.5-14.5); WHITE BLOOD COUNT 6.3 x10^3/uL (4.0-11.0)
[2018-07-02] MEDS: BENZTROPINE MESYLATE 0.5 MG TABLET PO SCH ×2 (07:50→19:23)
[2018-07-02 07:51] LABS: ALBUMIN 3.7 g/dL (3.4-5.0); ALBUMIN/GLOBULIN RATIO 1.3 (1.0-1.7); CALCIUM 9.6 mg/dL (8.5-10.1); CREATININE 0.7 mg/dL (0.6-1.0); GFR 83.2; POTASSIUM 3.6 mmol/L (3.5-5.1); TOTAL PROTEIN 6.6 g/dL (6.4-8.2)
[2018-07-02] MEDS: ASPIRIN 81 MG TAB.CHEW PO SCH (07:51)
[2018-07-02] MEDS: LACTOBACILLUS RHAMNOSUS GG 1 CAPSULE. PO SCH ×2 (07:51→19:23)
[2018-07-02] MEDS: ATORVASTATIN CALCIUM 20 MG TABLET PO SCH (07:51)
[2018-07-02] MEDS: CEFDINIR 300 MG CAPSULE PO SCH ×2 (07:51→19:24)
[2018-07-02] MEDS: DIVALPROEX 125 MG CAP.SPRINK PO SCH ×2 (07:51→19:23)
[2018-07-02] MEDS: LORazepam 0.5 MG TABLET PO SCH (07:53)
[2018-07-02] MEDS: LISINOPRIL 5 MG TABLET. PO SCH (09:00)
[2018-07-02] MEDS: METOPROLOL TART IMMED RELEASE 25 MG TABLET PO SCH ×2 (09:00→19:24)
[2018-07-02 16:23] VITALS: BP 96/68
[2018-07-02] MEDS: OLANZapine 10 MG TABLET PO SCH (19:25)
[2018-07-02] MEDS: MIRTAZAPINE 15 MG TABLET PO SCH (19:25)
--- NOTE | 2018-07-02 20:48 | PN ---
DATE: 07/01/2018 PSYCHIATRIC PROGRESS NOTE This late entry 07/01/2018 covers elements not covered in my initial note. SUBJECTIVE: I met with the patient in the evening. Reviewed information from Dr. Miramontes, who admitted the patient during my absence. The patient slept 6-3/4 hours previous night. She has done reasonably well during the day on 07/01/2018, BP is 70/40, heart rate 101. Dr. Schuler is addressing this medically and she started on D5 lactated Ringer solution IV. REVIEW OF SYSTEMS: No CV, , pulmonary, eye, ENT system symptoms on review. Reliability poor. MENTAL STATUS EXAM: Oriented to herself. Insight, judgment, recent and remote memory, attention, concentration, fund of knowledge poor, consistent with her diagnoses. IMPRESSION: Major neurocognitive disorder, Alzheimer, vascular with delusion, depression, behavioral disturbance; anxiety disorder, unspecified; impulse control disorder, unspecified; urinary tract infection. PLAN: Continue current psychotropics. Stabilize medically, then adjust as clinically indicated. MAN Nam TAYLOR MD DR: YOLANDA/reji JOB#: [id number] / [id number]
--- NOTE | 2018-07-02 22:32 | PDOC ---
Exam Note: Estuardo Note: Please also refer to the separate dictated note~for this date of service dictated separately.~Patient seen individually. Discussed the patient with Nursing staff reviewed the chart.~Reviewed interim history and current functioning. Reviewed vital signs,~Labs/ Radiology~and current medications noted below. Continue current treatment with the changes noted in the dictated addendum note Assessment: Vital Signs: Vital Signs Date Time Temp Pulse Resp B/P (MAP) Pulse Ox O2 Delivery O2 Flow Rate FiO2 07/02/18 19:24 94 96/68 07/02/18 16:23 97.8 20 98 Room Air I&O Intake and Output 07/02/18 07:00 Intake Total 1570 ml Balance 1570 ml Intake Oral 820 ml IV Total 750 ml # Bowel Movements 1 Labs: Laboratory Tests Test 07/02/18 07:06 White Blood Count 6.3 x10^3/uL (4.0-11.0) Red Blood Count 4.47 x10^6/uL (3.50-5.40) Hemoglobin 13.5 g/dL (12.0-15.5) Hematocrit 40.5 % (36.0-47.0) Mean Corpuscular Volume 91 fL (79-100) Mean Corpuscular Hemoglobin 30 pg (25-35) Mean Corpuscular Hemoglobin Concent 33 g/dL (31-37) Red Cell Distribution Width 13.6 % (11.5-14.5) Platelet Count 200 x10^3/uL (140-400) Neutrophils (%) (Auto) 55 % (31-73) Lymphocytes (%) (Auto) 30 % (24-48) Monocytes (%) (Auto) 13 % (0-9) H Eosinophils (%) (Auto) 1 % (0-3) Basophils (%) (Auto) 1 % (0-3) Neutrophils # (Auto) 3.5 x10^3uL (1.8-7.7) Lymphocytes # (Auto) 1.9 x10^3/uL (1.0-4.8) Monocytes # (Auto) 0.8 x10^3/uL (0.0-1.1) Eosinophils # (Auto) 0.0 x10^3/uL (0.0-0.7) Basophils # (Auto) 0.0 x10^3/uL (0.0-0.2) Sodium Level 148 mmol/L (136-145) H Potassium Level 3.6 mmol/L (3.5-5.1) Chloride Level 109 mmol/L (98-107) H Carbon Dioxide Level 31 mmol/L (21-32) Anion Gap 8 (6-14) Blood Urea Nitrogen 23 mg/dL (7-20) H Creatinine 0.7 mg/dL (0.6-1.0) Estimated GFR (Cockcroft-Gault) 83.2 BUN/Creatinine Ratio 33 (6-20) H Glucose Level 98 mg/dL (70-99) Calcium Level 9.6 mg/dL (8.5-10.1) Total Bilirubin 1.0 mg/dL (0.2-1.0) Aspartate Amino Transferase (AST) 48 U/L (15-37) H Alanine Aminotransferase (ALT) 38 U/L (14-59) Alkaline Phosphatase 53 U/L (46-116) Total Protein 6.6 g/dL (6.4-8.2) Albumin 3.7 g/dL (3.4-5.0) Albumin/Globulin Ratio 1.3 (1.0-1.7) Current Medications: Meds: Current Medications Nitrofurantoin Macrocrystals (Macrobid) 100 mg 1X ONCE PO Last administered on 06/25/18at 12:23; Start 06/25/18 at 12:30; Stop 06/25/18 at 12:31; Status DC Metoprolol Tartrate (Lopressor) 25 mg BID PO Last administered on 07/01/18at 07: 19; Start 06/25/18 at 21:00 Aspirin (Children'S Aspirin) 81 mg DAILYWBKFT PO Last administered on 07:51; Start 06/26/18 at 08:00 Lisinopril (Prinivil) 5 mg DAILY PO Last administered on 07/01/18 07:19; Start 06/26/18 at 09:00 Atorvastatin Calcium (Lipitor) 40 mg DAILY PO Last administered on 07/02/18 07 :51; Start 06/26/18 at 09:00 Lorazepam (Ativan) 0.5 mg DAILY PO Last administered on 07/02/18 07:53; Start 06/26/18 at 09:00 Mirtazapine (Remeron) 15 mg QHS PO Last administered on 06/26/18at 20:31; Start 06/25/18 at 21:00; Stop 06/27/18 at 16:44; Status DC Acetaminophen (Tylenol) 650 mg PRN Q6HRS PRN PO PAIN / TEMP; Start 06/25/18 at 15:00 Multi-Ingredient Ointment (Analgesic [place]) 1 bunny PRN QID PRN TP MUSCLE PAIN; Start 06/25/18 at 15:00 Al Hydroxide/Mg Hydroxide (Mylanta Plus Xs) 15 ml PRN AFTMEALHC PRN PO DYSPEPSIA; Start 06/25/18 at 15:00 Magnesium Hydroxide (Milk Of Magnesia) 2,400 mg PRN QHS PRN PO CONSTIPATION; Start 06/25/18 at 15:00 Olanzapine (ZyPREXA ZYDIS) 2.5 mg PRN DAILY PRN PO agitation/anxiey Last administered on 06/25/18at 20:55; Start 06/25/18 at 17:00; Stop 06/25/18 at 23:25 ; Status DC Olanzapine (ZyPREXA ZYDIS) 2.5 mg PRN Q2HR PRN PO agitation/anxiey Last administered on 07/01/18at 15:42; Start 06/25/18 at 23:30 Lorazepam (Ativan) 0.5 mg PRN Q4HRS PRN PO ANXIETY / AGITATION Last administered on 06/30/18at 05:51; Start 06/25/18 at 23:30 Olanzapine (ZyPREXA) 10 mg HS PO Last administered on 07/02/18at 19:25; Start at 21:00 Mirtazapine (Remeron) 22.5 mg QHS PO Last administered on 07/02/18at 19:25; Start 06/27/18 at 21:00 Cefdinir (Omnicef) 300 mg BID PO Last administered on 07/02/18at 19:24; Start at 21:00; Stop 07/06/18 at 20:59 Lactobacillus Rhamnosus (Culturelle) 1 cap BID PO Last administered on at 19:23; Start 06/29/18 at 21:00 Benztropine Mesylate (Cogentin) 0.5 mg BID PO Last administered on 07/02/18 19 :23; Start 06/30/18 at 21:00 Divalproex Sodium (Depakote Sprinkles) 125 mg BID PO Last administered on 19:23; Start 06/30/18 at 21:00 Dextrose/Lactated Ringer's 1,000 ml @ 200 mls/hr 1X ONCE IV Last administered on 07/01/18 17:29; Start 07/01/18 at 17:30; Stop 07/01/18 at 22:29 ; Status DC Potassium Chloride (Klor-Con) 40 meq 1X ONCE PO Last administered on 19:13; Start 07/01/18 at 18:30; Stop 07/01/18 at 18:31; Status DC Active Scripts Active Reported Mirtazapine 15 Mg Tablet 15 Mg PO QHS Metoprolol Tartrate 25 Mg Tablet 25 Mg PO BID Lorazepam 0.5 Mg Tablet 0.5 Mg PO DAILY Lisinopril 5 Mg Tablet 5 Mg PO DAILY Atorvastatin Calcium 40 Mg Tablet 40 Mg PO DAILY Aspirin 81 Mg Tab.chew 81 Mg PO DAILY I have reviewed the current psychotropics carefully including drug interactions. Risk benefit ratio favors no change other than as noted in my dictated progress note. COLTON TAYLOR MD Jul 02, 2018 22:32
[2018-07-03 06:02] VITALS: BP 117/67
[2018-07-03] MEDS: CEFDINIR 300 MG CAPSULE PO SCH ×2 (07:58→19:35)
[2018-07-03] MEDS: ATORVASTATIN CALCIUM 20 MG TABLET PO SCH (07:58)
[2018-07-03] MEDS: LACTOBACILLUS RHAMNOSUS GG 1 CAPSULE. PO SCH ×2 (07:58→19:34)
[2018-07-03] MEDS: BENZTROPINE MESYLATE 0.5 MG TABLET PO SCH ×2 (07:58→19:34)
[2018-07-03] MEDS: DIVALPROEX 125 MG CAP.SPRINK PO SCH ×2 (07:59→19:34)
[2018-07-03] MEDS: ASPIRIN 81 MG TAB.CHEW PO SCH (07:59)
[2018-07-03] MEDS: LORazepam 0.5 MG TABLET PO SCH (08:01)
[2018-07-03] MEDS: METOPROLOL TART IMMED RELEASE 25 MG TABLET PO SCH ×2 (09:00→19:34)
[2018-07-03] MEDS: LISINOPRIL 5 MG TABLET. PO SCH (09:00)
[2018-07-03 16:36] VITALS: BP 101/69
--- NOTE | 2018-07-03 19:07 | PN ---
DATE: 07/02/2018 PSYCHIATRIC PROGRESS NOTE This late entry 07/02/2018 covers elements not covered in my initial note. SUBJECTIVE: I met with the patient in the evening. The patient slept 6-1/2 hours previous night. She has been wandering, oriented to herself. Her blood pressure is better 110/74. She did pull out her IV the previous night. REVIEW OF SYSTEMS: No CV, , pulmonary, eye, ENT system symptoms on review. Reliability poor. MENTAL STATUS EXAMINATION: The patient is oriented to herself. Insight, judgment, recent and remote memory, attention, concentration, fund of knowledge poor, consistent with her diagnosis mentioned in my initial note. PLAN: No change from initial note. MAN Nam TAYLOR MD DR: YOLANDA/reji JOB#: [id number] / [id number]
[2018-07-03] MEDS: OLANZapine 10 MG TABLET PO SCH (19:35)
[2018-07-03] MEDS: MIRTAZAPINE 15 MG TABLET PO SCH (19:35)
--- NOTE | 2018-07-03 22:44 | PDOC ---
Exam Note: Estuardo Note: Please also refer to the separate dictated note~for this date of service dictated separately.~Patient seen individually. Discussed the patient with Nursing staff reviewed the chart.~Reviewed interim history and current functioning. Reviewed vital signs,~Labs/ Radiology~and current medications noted below. Continue current treatment with the changes noted in the dictated addendum note Assessment: Vital Signs: Vital Signs Date Time Temp Pulse Resp B/P (MAP) Pulse Ox O2 Delivery O2 Flow Rate FiO2 07/03/18 19:34 93 101/69 07/03/18 16:36 97.5 19 99 07/02/18 16:23 Room Air I&O Intake and Output 07/03/18 07:00 Intake Total 1630 ml Balance 1630 ml Intake Oral 880 ml IV Total 750 ml Current Medications: Meds: Current Medications Nitrofurantoin Macrocrystals (Macrobid) 100 mg 1X ONCE PO Last administered on 06/25/18at 12:23; Start 06/25/18 at 12:30; Stop 06/25/18 at 12:31; Status DC Metoprolol Tartrate (Lopressor) 25 mg BID PO Last administered on 07/01/18 07: 19; Start 06/25/18 at 21:00 Aspirin (Children'S Aspirin) 81 mg DAILYWBKFT PO Last administered on at 07:59; Start 06/26/18 at 08:00 Lisinopril (Prinivil) 5 mg DAILY PO Last administered on 07/01/18at 07:19; Start 06/26/18 at 09:00 Atorvastatin Calcium (Lipitor) 40 mg DAILY PO Last administered on 07/03/18at 07 :58; Start 06/26/18 at 09:00 Lorazepam (Ativan) 0.5 mg DAILY PO Last administered on 07/03/18at 08:01; Start 06/26/18 at 09:00 Mirtazapine (Remeron) 15 mg QHS PO Last administered on 06/26/18at 20:31; Start 06/25/18 at 21:00; Stop 06/27/18 at 16:44; Status DC Acetaminophen (Tylenol) 650 mg PRN Q6HRS PRN PO PAIN / TEMP; Start 06/25/18 at 15:00 Multi-Ingredient Ointment (Analgesic [place]) 1 bunny PRN QID PRN TP MUSCLE PAIN; Start 06/25/18 at 15:00 Al Hydroxide/Mg Hydroxide (Mylanta Plus Xs) 15 ml PRN AFTMEALHC PRN PO DYSPEPSIA; Start 06/25/18 at 15:00 Magnesium Hydroxide (Milk Of Magnesia) 2,400 mg PRN QHS PRN PO CONSTIPATION; Start 06/25/18 at 15:00 Olanzapine (ZyPREXA ZYDIS) 2.5 mg PRN DAILY PRN PO agitation/anxiey Last administered on 06/25/18 20:55; Start 06/25/18 at 17:00; Stop 06/25/18 at 23:25 ; Status DC Olanzapine (ZyPREXA ZYDIS) 2.5 mg PRN Q2HR PRN PO agitation/anxiey Last administered on 07/01/18 15:42; Start 06/25/18 at 23:30 Lorazepam (Ativan) 0.5 mg PRN Q4HRS PRN PO ANXIETY / AGITATION Last administered on 06/30/18 05:51; Start 06/25/18 at 23:30 Olanzapine (ZyPREXA) 10 mg HS PO Last administered on 07/03/18 19:35; Start at 21:00 Mirtazapine (Remeron) 22.5 mg QHS PO Last administered on 07/03/18 19:35; Start 06/27/18 at 21:00 Cefdinir (Omnicef) 300 mg BID PO Last administered on 07/03/18 19:35; Start at 21:00; Stop 07/06/18 at 20:59 Lactobacillus Rhamnosus (Culturelle) 1 cap BID PO Last administered on 19:34; Start 06/29/18 at 21:00 Benztropine Mesylate (Cogentin) 0.5 mg BID PO Last administered on 07/03/18 19 :34; Start 06/30/18 at 21:00 Divalproex Sodium (Depakote Sprinkles) 125 mg BID PO Last administered on 19:34; Start 06/30/18 at 21:00 Dextrose/Lactated Ringer's 1,000 ml @ 200 mls/hr 1X ONCE IV Last administered on 3/18/19at 17:29; Start 07/01/18 at 17:30; Stop 07/01/18 at 22:29 ; Status DC Potassium Chloride (Klor-Con) 40 meq 1X ONCE PO Last administered on at 19:13; Start 07/01/18 at 18:30; Stop 07/01/18 at 18:31; Status DC Active Scripts Active Reported Mirtazapine 15 Mg Tablet 15 Mg PO QHS Metoprolol Tartrate 25 Mg Tablet 25 Mg PO BID Lorazepam 0.5 Mg Tablet 0.5 Mg PO DAILY Lisinopril 5 Mg Tablet 5 Mg PO DAILY Atorvastatin Calcium 40 Mg Tablet 40 Mg PO DAILY Aspirin 81 Mg Tab.chew 81 Mg PO DAILY I have reviewed the current psychotropics carefully including drug interactions. Risk benefit ratio favors no change other than as noted in my dictated progress note. Diagnosis: Problems: (1) Anxiety disorder (2) Dementia in Alzheimer's disease with delusions (3) Dementia in Alzheimer's disease with depression (4) Dementia, vascular, with delusions (5) Dementia, vascular, with depression (6) Impulse control disorder COLTON TAYLOR MD Jul 03, 2018 22:44
[2018-07-04 06:06] VITALS: BP 122/78
[2018-07-04] MEDS: LACTOBACILLUS RHAMNOSUS GG 1 CAPSULE. PO SCH ×2 (07:55→19:28)
[2018-07-04] MEDS: CEFDINIR 300 MG CAPSULE PO SCH ×2 (07:55→19:28)
[2018-07-04] MEDS: DIVALPROEX 125 MG CAP.SPRINK PO SCH ×2 (07:55→19:28)
[2018-07-04] MEDS: LISINOPRIL 5 MG TABLET. PO SCH (07:56)
[2018-07-04] MEDS: ATORVASTATIN CALCIUM 20 MG TABLET PO SCH (07:56)
[2018-07-04] MEDS: BENZTROPINE MESYLATE 0.5 MG TABLET PO SCH (07:56)
[2018-07-04] MEDS: METOPROLOL TART IMMED RELEASE 25 MG TABLET PO SCH ×2 (07:56→19:28)
[2018-07-04] MEDS: ASPIRIN 81 MG TAB.CHEW PO SCH (07:56)
[2018-07-04] MEDS: LORazepam 0.5 MG TABLET PO SCH (07:58)
[2018-07-04 15:57] VITALS: BP 100/69
[2018-07-04] MEDS: MIRTAZAPINE 15 MG TABLET PO SCH (19:29)
[2018-07-04] MEDS: OLANZapine 10 MG TABLET PO SCH (20:49)
--- NOTE | 2018-07-04 22:30 | PDOC ---
Exam Note: Estuardo Note: Please also refer to the separate dictated note~for this date of service dictated separately.~Patient seen individually. Discussed the patient with Nursing staff reviewed the chart.~Reviewed interim history and current functioning. Reviewed vital signs,~Labs/ Radiology~and current medications noted below. Continue current treatment with the changes noted in the dictated addendum note Assessment: Vital Signs: Vital Signs Date Time Temp Pulse Resp B/P (MAP) Pulse Ox O2 Delivery O2 Flow Rate FiO2 07/04/18 19:28 88 100/69 07/04/18 15:57 98.4 19 97 Room Air I&O Intake and Output 07/04/18 07:00 Intake Total 960 ml Balance 960 ml Intake Oral 960 ml Current Medications: Meds: Current Medications Nitrofurantoin Macrocrystals (Macrobid) 100 mg 1X ONCE PO Last administered on 06/25/18at 12:23; Start 06/25/18 at 12:30; Stop 06/25/18 at 12:31; Status DC Metoprolol Tartrate (Lopressor) 25 mg BID PO Last administered on 07/04/18at 19: 28; Start 06/25/18 at 21:00 Aspirin (Children'S Aspirin) 81 mg DAILYWBKFT PO Last administered on at 07:56; Start 06/26/18 at 08:00 Lisinopril (Prinivil) 5 mg DAILY PO Last administered on 07/04/18at 07:56; Start 06/26/18 at 09:00 Atorvastatin Calcium (Lipitor) 40 mg DAILY PO Last administered on 07/04/18at 07 :56; Start 06/26/18 at 09:00 Lorazepam (Ativan) 0.5 mg DAILY PO Last administered on 07/04/18at 07:58; Start 06/26/18 at 09:00 Mirtazapine (Remeron) 15 mg QHS PO Last administered on 06/26/18at 20:31; Start 06/25/18 at 21:00; Stop 06/27/18 at 16:44; Status DC Acetaminophen (Tylenol) 650 mg PRN Q6HRS PRN PO PAIN / TEMP; Start 06/25/18 at 15:00 Multi-Ingredient Ointment (Analgesic [place]) 1 bunny PRN QID PRN TP MUSCLE PAIN; Start 06/25/18 at 15:00 Al Hydroxide/Mg Hydroxide (Mylanta Plus Xs) 15 ml PRN AFTMEALHC PRN PO DYSPEPSIA; Start 06/25/18 at 15:00 Magnesium Hydroxide (Milk Of Magnesia) 2,400 mg PRN QHS PRN PO CONSTIPATION; Start 06/25/18 at 15:00 Olanzapine (ZyPREXA ZYDIS) 2.5 mg PRN DAILY PRN PO agitation/anxiey Last administered on 06/25/18at 20:55; Start 06/25/18 at 17:00; Stop 06/25/18 at 23:25 ; Status DC Olanzapine (ZyPREXA ZYDIS) 2.5 mg PRN Q2HR PRN PO agitation/anxiey Last administered on 07/01/18at 15:42; Start 06/25/18 at 23:30 Lorazepam (Ativan) 0.5 mg PRN Q4HRS PRN PO ANXIETY / AGITATION Last administered on 06/30/18 05:51; Start 06/25/18 at 23:30 Olanzapine (ZyPREXA) 10 mg HS PO Last administered on 07/03/18 19:35; Start at 21:00; Stop 07/04/18 at 11:51; Status DC Mirtazapine (Remeron) 22.5 mg QHS PO Last administered on 07/04/18 19:29; Start 06/27/18 at 21:00 Cefdinir (Omnicef) 300 mg BID PO Last administered on 07/04/18 19:28; Start at 21:00; Stop 07/06/18 at 20:59 Lactobacillus Rhamnosus (Culturelle) 1 cap BID PO Last administered on 19:28; Start 06/29/18 at 21:00 Benztropine Mesylate (Cogentin) 0.5 mg BID PO Last administered on 07/04/18 07 :56; Start 06/30/18 at 21:00; Stop 07/04/18 at 11:51; Status DC Divalproex Sodium (Depakote Sprinkles) 125 mg BID PO Last administered on 19:28; Start 06/30/18 at 21:00 Dextrose/Lactated Ringer's 1,000 ml @ 200 mls/hr 1X ONCE IV Last administered on 07/01/18at 17:29; Start 07/01/18 at 17:30; Stop 07/01/18 at 22:29 ; Status DC Potassium Chloride (Klor-Con) 40 meq 1X ONCE PO Last administered on at 19:13; Start 07/01/18 at 18:30; Stop 07/01/18 at 18:31; Status DC Benztropine Mesylate (Cogentin) 0.5 mg DAILY PO ; Start 07/05/18 at 09:00; Stop 07/06/18 at 11:00 Olanzapine (ZyPREXA) 5 mg HS PO Last administered on 07/04/18at 20:49; Start at 21:00 Active Scripts Active Reported Mirtazapine 15 Mg Tablet 15 Mg PO QHS Metoprolol Tartrate 25 Mg Tablet 25 Mg PO BID Lorazepam 0.5 Mg Tablet 0.5 Mg PO DAILY Lisinopril 5 Mg Tablet 5 Mg PO DAILY Atorvastatin Calcium 40 Mg Tablet 40 Mg PO DAILY Aspirin 81 Mg Tab.chew 81 Mg PO DAILY I have reviewed the current psychotropics carefully including drug interactions. Risk benefit ratio favors no change other than as noted in my dictated progress note. Diagnosis: Problems: (1) Anxiety disorder (2) Dementia in Alzheimer's disease with delusions (3) Dementia in Alzheimer's disease with depression (4) Dementia, vascular, with delusions (5) Dementia, vascular, with depression (6) Impulse control disorder COLTON TAYLOR MD Jul 04, 2018 22:30
[2018-07-05 06:09] VITALS: BP 116/77
[2018-07-05] MEDS: DIVALPROEX 125 MG CAP.SPRINK PO SCH ×2 (07:45→19:23)
[2018-07-05] MEDS: ATORVASTATIN CALCIUM 20 MG TABLET PO SCH (07:45)
[2018-07-05] MEDS: ASPIRIN 81 MG TAB.CHEW PO SCH (07:46)
[2018-07-05] MEDS: METOPROLOL TART IMMED RELEASE 25 MG TABLET PO SCH ×2 (07:46→19:25)
[2018-07-05] MEDS: CEFDINIR 300 MG CAPSULE PO SCH ×2 (07:46→19:24)
[2018-07-05] MEDS: LISINOPRIL 5 MG TABLET. PO SCH (07:46)
[2018-07-05] MEDS: LACTOBACILLUS RHAMNOSUS GG 1 CAPSULE. PO SCH ×2 (07:47→19:23)
[2018-07-05] MEDS: LORazepam 0.5 MG TABLET PO SCH (07:49)
[2018-07-05] MEDS: BENZTROPINE MESYLATE 0.5 MG TABLET PO SCH (07:50)
[2018-07-05 08:31] LABS: ALBUMIN 3.8 g/dL (3.4-5.0); ALBUMIN/GLOBULIN RATIO 1.2 (1.0-1.7); CALCIUM 9.9 mg/dL (8.5-10.1); CREATININE 0.7 mg/dL (0.6-1.0); GFR 83.2; POTASSIUM 3.8 mmol/L (3.5-5.1); TOTAL PROTEIN 6.9 g/dL (6.4-8.2)
--- NOTE | 2018-07-05 12:55 | PN ---
DATE: 07/04/2018 This is a late entry 07/04/2018 covers elements not covered in my initial note 07/04/2018. SUBJECTIVE: I met with the patient in the evening and staffed a treatment team meeting with the entire team in the morning and the patient's and the patient's daughter, attended the conference. We had a lengthy discussion about her history with the onset of Alzheimer dementia about 5-7 years back. She does have a history of hypertension, status post [place] in 2013 and certainly this brings up the question of vascular dementia as well. 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 She has been much worse in her cognitive symptoms for the past 1 year and over the past few weeks prior to admission, she was actively hallucinating, delusional, combative. She broke the television set, pulled the curtains off the rios, as part of her psychosis, believed people were going to kill her and then she would try and kill them before they got to her. This is what prompted her admission. Reviewed the diagnosis, treatment, prognosis. REVIEW OF SYSTEMS: No CV, , pulmonary, eye, ENT system symptoms on review. Reliability poor. MENTAL STATUS EXAM: Oriented to herself. Insight, judgment, recent and remote memory, attention, concentration, fund of knowledge poor, consistent with her diagnoses. IMPRESSION: Major neurocognitive disorder, probably Alzheimer, vascular with delusion, depression, behavioral disturbance; anxiety disorder, unspecified; impulse control disorder, unspecified. Rest unchanged. PLAN: The patient is on Cogentin 0.5 mg b.i.d. We will reduce to 0.5 mg once a day for 2 days and stop it to avoid the central anticholinergic side effects of benztropine that could worsen her confusion. She is also on Zyprexa 10 mg at bedtime, but given her age and overall status, her lower dosage may be sufficient and we will reduce to 5 mg a day and reassess if this is inadequate. Maintain Depakote at current dosage for now and Remeron. MAN Nam TAYLOR MD DR: YOLANDA/reji JOB#: [id number] / [id number]
--- NOTE | 2018-07-05 14:52 | PN ---
DATE: 07/03/2018 PSYCHIATRIC PROGRESS NOTE This late entry of 07/03/2018, covers elements not covered in my initial note. SUBJECTIVE: I met with the patient in the evening. The patient slept 6-3/4 hours previous night. Overall, the patient remains confused, has been wandering more, quite disorganized. Slept 6-3/4 hours previous night. REVIEW OF SYSTEMS: No CV, , pulmonary, eye, ENT system symptoms on review. Reliability poor. MENTAL STATUS EXAM: Oriented to herself. Insight, judgment, recent and remote memory, attention, concentration, fund of knowledge poor, consistent with her diagnosis mentioned in my initial note. LABORATORY DATA: Reviewed. PLAN: Continue psychotropics from initial note. Further changes as clinically indicated will be made in her psychotropics, after discussion with the family at the treatment team meeting on 07/04/2018. MAN Nam TAYLOR MD DR: YOLANDA/reji JOB#: [id number] / [id number]
[2018-07-05 15:59] VITALS: BP 123/88
[2018-07-05] MEDS: OLANZapine 10 MG TABLET PO SCH (19:23)
[2018-07-05] MEDS: MIRTAZAPINE 15 MG TABLET PO SCH (19:24)
--- NOTE | 2018-07-05 22:34 | PDOC ---
Exam Note: Estuardo Note: Please also refer to the separate dictated note~for this date of service dictated separately.~Patient seen individually. Discussed the patient with Nursing staff reviewed the chart.~Reviewed interim history and current functioning. Reviewed vital signs,~Labs/ Radiology~and current medications noted below. Continue current treatment with the changes noted in the dictated addendum note Assessment: Vital Signs: Vital Signs Date Time Temp Pulse Resp B/P (MAP) Pulse Ox O2 Delivery O2 Flow Rate FiO2 07/05/18 19:25 69 123/88 07/05/18 15:59 98.5 16 98 Room Air I&O Intake and Output 07/05/18 07:00 Intake Total 960 ml Balance 960 ml Intake Oral 960 ml Labs: Laboratory Tests Test 07/05/18 07:49 Sodium Level 149 mmol/L (136-145) H Potassium Level 3.8 mmol/L (3.5-5.1) Chloride Level 109 mmol/L (98-107) H Carbon Dioxide Level 30 mmol/L (21-32) Anion Gap 10 (6-14) Blood Urea Nitrogen 19 mg/dL (7-20) Creatinine 0.7 mg/dL (0.6-1.0) Estimated GFR (Cockcroft-Gault) 83.2 BUN/Creatinine Ratio 27 (6-20) H Glucose Level 89 mg/dL (70-99) Calcium Level 9.9 mg/dL (8.5-10.1) Total Bilirubin 1.0 mg/dL (0.2-1.0) Aspartate Amino Transferase (AST) 34 U/L (15-37) Alanine Aminotransferase (ALT) 38 U/L (14-59) Alkaline Phosphatase 53 U/L (46-116) Total Protein 6.9 g/dL (6.4-8.2) Albumin 3.8 g/dL (3.4-5.0) Albumin/Globulin Ratio 1.2 (1.0-1.7) Current Medications: Meds: Current Medications Nitrofurantoin Macrocrystals (Macrobid) 100 mg 1X ONCE PO Last administered on 06/25/18at 12:23; Start 06/25/18 at 12:30; Stop 06/25/18 at 12:31; Status DC Metoprolol Tartrate (Lopressor) 25 mg BID PO Last administered on 07/05/18at 19: 25; Start 3/12/19 at 21:00 Aspirin (Children'S Aspirin) 81 mg DAILYWBKFT PO Last administered on 07:46; Start 06/26/18 at 08:00 Lisinopril (Prinivil) 5 mg DAILY PO Last administered on 07/05/18 07:46; Start 06/26/18 at 09:00 Atorvastatin Calcium (Lipitor) 40 mg DAILY PO Last administered on 07/05/18 07 :45; Start 06/26/18 at 09:00 Lorazepam (Ativan) 0.5 mg DAILY PO Last administered on 07/05/18 07:49; Start 06/26/18 at 09:00 Mirtazapine (Remeron) 15 mg QHS PO Last administered on 06/26/18 20:31; Start 06/25/18 at 21:00; Stop 06/27/18 at 16:44; Status DC Acetaminophen (Tylenol) 650 mg PRN Q6HRS PRN PO PAIN / TEMP; Start 06/25/18 at 15:00 Multi-Ingredient Ointment (Analgesic [place]) 1 bunny PRN QID PRN TP MUSCLE PAIN; Start 06/25/18 at 15:00 Al Hydroxide/Mg Hydroxide (Mylanta Plus Xs) 15 ml PRN AFTMEALHC PRN PO DYSPEPSIA; Start 06/25/18 at 15:00 Magnesium Hydroxide (Milk Of Magnesia) 2,400 mg PRN QHS PRN PO CONSTIPATION; Start 06/25/18 at 15:00 Olanzapine (ZyPREXA ZYDIS) 2.5 mg PRN DAILY PRN PO agitation/anxiey Last administered on 06/25/18at 20:55; Start 06/25/18 at 17:00; Stop 06/25/18 at 23:25 ; Status DC Olanzapine (ZyPREXA ZYDIS) 2.5 mg PRN Q2HR PRN PO agitation/anxiey Last administered on 07/05/18at 10:27; Start 06/25/18 at 23:30 Lorazepam (Ativan) 0.5 mg PRN Q4HRS PRN PO ANXIETY / AGITATION Last administered on 06/30/18 05:51; Start 06/25/18 at 23:30 Olanzapine (ZyPREXA) 10 mg HS PO Last administered on 07/03/18 19:35; Start at 21:00; Stop 07/04/18 at 11:51; Status DC Mirtazapine (Remeron) 22.5 mg QHS PO Last administered on 07/05/18 19:24; Start 06/27/18 at 21:00 Cefdinir (Omnicef) 300 mg BID PO Last administered on 07/05/18 19:24; Start at 21:00; Stop 07/06/18 at 20:59 Lactobacillus Rhamnosus (Culturelle) 1 cap BID PO Last administered on 19:23; Start 06/29/18 at 21:00 Benztropine Mesylate (Cogentin) 0.5 mg BID PO Last administered on 07/04/18 07 :56; Start 06/30/18 at 21:00; Stop 07/04/18 at 11:51; Status DC Divalproex Sodium (Depakote Sprinkles) 125 mg BID PO Last administered on 19:23; Start 06/30/18 at 21:00 Dextrose/Lactated Ringer's 1,000 ml @ 200 mls/hr 1X ONCE IV Last administered on 07/01/18 17:29; Start 07/01/18 at 17:30; Stop 07/01/18 at 22:29 ; Status DC Potassium Chloride (Klor-Con) 40 meq 1X ONCE PO Last administered on 19:13; Start 07/01/18 at 18:30; Stop 07/01/18 at 18:31; Status DC Benztropine Mesylate (Cogentin) 0.5 mg DAILY PO Last administered on 07/05/18at 07:50; Start 07/05/18 at 09:00; Stop 07/06/18 at 11:00 Olanzapine (ZyPREXA) 5 mg HS PO Last administered on 07/05/18 19:23; Start at 21:00 Active Scripts Active Reported Mirtazapine 15 Mg Tablet 15 Mg PO QHS Metoprolol Tartrate 25 Mg Tablet 25 Mg PO BID Lorazepam 0.5 Mg Tablet 0.5 Mg PO DAILY Lisinopril 5 Mg Tablet 5 Mg PO DAILY Atorvastatin Calcium 40 Mg Tablet 40 Mg PO DAILY Aspirin 81 Mg Tab.chew 81 Mg PO DAILY I have reviewed the current psychotropics carefully including drug interactions. Risk benefit ratio favors no change other than as noted in my dictated progress note. Diagnosis: Problems: (1) Anxiety disorder (2) Dementia in Alzheimer's disease with delusions (3) Dementia in Alzheimer's disease with depression (4) Dementia, vascular, with delusions (5) Dementia, vascular, with depression (6) Impulse control disorder COLTON TAYLOR MD Jul 05, 2018 22:34
[2018-07-06 05:45] VITALS: BP 99/60
[2018-07-06] MEDS: ASPIRIN 81 MG TAB.CHEW PO SCH (08:04)
[2018-07-06] MEDS: CEFDINIR 300 MG CAPSULE PO SCH (08:05)
[2018-07-06] MEDS: BENZTROPINE MESYLATE 0.5 MG TABLET PO SCH (08:05)
[2018-07-06] MEDS: LORazepam 0.5 MG TABLET PO SCH (08:05)
[2018-07-06] MEDS: ATORVASTATIN CALCIUM 20 MG TABLET PO SCH (08:05)
[2018-07-06] MEDS: LACTOBACILLUS RHAMNOSUS GG 1 CAPSULE. PO SCH ×2 (08:05→19:08)
[2018-07-06] MEDS: DIVALPROEX 125 MG CAP.SPRINK PO SCH ×2 (08:05→19:08)
[2018-07-06] MEDS: METOPROLOL TART IMMED RELEASE 25 MG TABLET PO SCH ×2 (09:00→19:09)
[2018-07-06] MEDS: LISINOPRIL 5 MG TABLET. PO SCH (09:00)
--- NOTE | 2018-07-06 12:01 | PN ---
DATE: 07/05/2018 PSYCHIATRIC PROGRESS NOTE This late entry 07/05/2018 covers elements not covered in my initial note. SUBJECTIVE: I met with the patient in the evening. The patient slept 7-1/2 hours, did well previous night, wandering during the day on 07/05/2018. Somewhat intrusive. She will not leave another elderly demented patient alone. Family feels this is because this patient reminds her of her grandfather. We will check a valproic acid level in the morning, adjust Depakote thereafter. REVIEW OF SYSTEMS: No CV, , pulmonary, eye, ENT system symptoms on review. Reliability poor. MENTAL STATUS EXAM: Oriented to herself. Insight, judgment, recent and remote memory, attention, concentration, fund of knowledge poor, consistent with her diagnosis mentioned in my initial note. PLAN: No change other than noted above. MAN Nam TAYLOR MD DR: YOLANDA/reji JOB#: [id number] / [id number]
[2018-07-06 15:35] LABS: VAL ACID 37 mcg/mL (50-100)
[2018-07-06 15:36] LABS: ALBUMIN 3.9 g/dL (3.4-5.0); ALBUMIN/GLOBULIN RATIO 1.6 (1.0-1.7); CALCIUM 9.7 mg/dL (8.5-10.1); CREATININE 0.7 mg/dL (0.6-1.0); GFR 83.2; POTASSIUM 3.5 mmol/L (3.5-5.1); TOTAL BILIRUBIN 0.9 mg/dL (0.2-1.0); TOTAL PROTEIN 6.4 g/dL (6.4-8.2)
[2018-07-06 16:09] VITALS: BP 99/71
[2018-07-06] MEDS: OLANZapine 10 MG TABLET PO SCH (19:10)
[2018-07-06] MEDS: MIRTAZAPINE 15 MG TABLET PO SCH (19:10)
[2018-07-06 20:47] LABS: BASO # 0.1 x10^3/uL (0.0-0.2); BASO % 1 % (0-3); EOS # 0.1 x10^3/uL (0.0-0.7); EOS % 1 % (0-3); HEMATOCRIT 40.3 % (36.0-47.0); HEMOGLOBIN 13.5 g/dL (12.0-15.5); LYMPH # 1.8 x10^3/uL (1.0-4.8); LYMPH % 25 % (24-48); MEAN CORPUSCULAR HEMOGLOBIN 30 pg (25-35); MEAN CORPUSCULAR HGB CONC 33 g/dL (31-37); MEAN CORPUSCULAR VOLUME 90 fL (79-100); MONO % 14 % (0-9); NEUT # 4.3 x10^3uL (1.8-7.7); NEUT % 60 % (31-73); PLATELET COUNT 209 x10^3/uL (140-400); RED BLOOD COUNT 4.46 x10^6/uL (3.50-5.40); RED CELL DISTRIBUTION WIDTH 13.1 % (11.5-14.5); WHITE BLOOD COUNT 7.2 x10^3/uL (4.0-11.0)
[2018-07-06] MEDS: traZODone 50 MG TABLET. PO PRN (21:59)
--- NOTE | 2018-07-06 23:00 | PDOC ---
Exam Note: Estuardo Note: Please also refer to the separate dictated note~for this date of service dictated separately.~Patient seen individually. Discussed the patient with Nursing staff reviewed the chart.~Reviewed interim history and current functioning. Reviewed vital signs,~Labs/ Radiology~and current medications noted below. Continue current treatment with the changes noted in the dictated addendum note Assessment: Vital Signs: Vital Signs Date Time Temp Pulse Resp B/P (MAP) Pulse Ox O2 Delivery O2 Flow Rate FiO2 07/06/18 19:09 86 99/71 07/06/18 16:09 98.5 18 100 Room Air I&O Intake and Output 07/06/18 07:00 Intake Total 540 ml Balance 540 ml Intake Oral 540 ml Labs: Laboratory Tests Test 07/06/18 15:15 07/06/18 20:38 Sodium Level 146 mmol/L (136-145) H Potassium Level 3.5 mmol/L (3.5-5.1) Chloride Level 105 mmol/L (98-107) Carbon Dioxide Level 30 mmol/L (21-32) Anion Gap 11 (6-14) Blood Urea Nitrogen 22 mg/dL (7-20) H Creatinine 0.7 mg/dL (0.6-1.0) Estimated GFR (Cockcroft-Gault) 83.2 BUN/Creatinine Ratio 31 (6-20) H Glucose Level 93 mg/dL (70-99) Calcium Level 9.7 mg/dL (8.5-10.1) Total Bilirubin 0.9 mg/dL (0.2-1.0) Aspartate Amino Transferase (AST) 31 U/L (15-37) Alanine Aminotransferase (ALT) 36 U/L (14-59) Alkaline Phosphatase 51 U/L (46-116) Total Protein 6.4 g/dL (6.4-8.2) Albumin 3.9 g/dL (3.4-5.0) Albumin/Globulin Ratio 1.6 (1.0-1.7) Valproic Acid Level 37 mcg/mL (50-100) L Valproic Acid Last Dose Date 07/05/2018 Valproic Acid Last Dose Time 2100 White Blood Count 7.2 x10^3/uL (4.0-11.0) Red Blood Count 4.46 x10^6/uL (3.50-5.40) Hemoglobin 13.5 g/dL (12.0-15.5) Hematocrit 40.3 % (36.0-47.0) Mean Corpuscular Volume 90 fL (79-100) Mean Corpuscular Hemoglobin 30 pg (25-35) Mean Corpuscular Hemoglobin Concent 33 g/dL (31-37) Red Cell Distribution Width 13.1 % (11.5-14.5) Platelet Count 209 x10^3/uL (140-400) Neutrophils (%) (Auto) 60 % (31-73) Lymphocytes (%) (Auto) 25 % (24-48) Monocytes (%) (Auto) 14 % (0-9) H Eosinophils (%) (Auto) 1 % (0-3) Basophils (%) (Auto) 1 % (0-3) Neutrophils # (Auto) 4.3 x10^3uL (1.8-7.7) Lymphocytes # (Auto) 1.8 x10^3/uL (1.0-4.8) Monocytes # (Auto) 1.0 x10^3/uL (0.0-1.1) Eosinophils # (Auto) 0.1 x10^3/uL (0.0-0.7) Basophils # (Auto) 0.1 x10^3/uL (0.0-0.2) Current Medications: Meds: Current Medications Nitrofurantoin Macrocrystals (Macrobid) 100 mg 1X ONCE PO Last administered on 06/25/18at 12:23; Start 06/25/18 at 12:30; Stop 06/25/18 at 12:31; Status DC Metoprolol Tartrate (Lopressor) 25 mg BID PO Last administered on 07/05/18at 19: 25; Start 06/25/18 at 21:00 Aspirin (Children'S Aspirin) 81 mg DAILYWBKFT PO Last administered on 08:04; Start 06/26/18 at 08:00 Lisinopril (Prinivil) 5 mg DAILY PO Last administered on 07/05/18at 07:46; Start 06/26/18 at 09:00 Atorvastatin Calcium (Lipitor) 40 mg DAILY PO Last administered on 07/06/18 08 :05; Start 06/26/18 at 09:00 Lorazepam (Ativan) 0.5 mg DAILY PO Last administered on 07/06/18 08:05; Start 06/26/18 at 09:00 Mirtazapine (Remeron) 15 mg QHS PO Last administered on 06/26/18 20:31; Start 06/25/18 at 21:00; Stop 06/27/18 at 16:44; Status DC Acetaminophen (Tylenol) 650 mg PRN Q6HRS PRN PO PAIN / TEMP; Start 06/25/18 at 15:00 Multi-Ingredient Ointment (Analgesic [place]) 1 bunny PRN QID PRN TP MUSCLE PAIN; Start 06/25/18 at 15:00 Al Hydroxide/Mg Hydroxide (Mylanta Plus Xs) 15 ml PRN AFTMEALHC PRN PO DYSPEPSIA; Start 06/25/18 at 15:00 Magnesium Hydroxide (Milk Of Magnesia) 2,400 mg PRN QHS PRN PO CONSTIPATION; Start 06/25/18 at 15:00 Olanzapine (ZyPREXA ZYDIS) 2.5 mg PRN DAILY PRN PO agitation/anxiey Last administered on 06/25/18at 20:55; Start 06/25/18 at 17:00; Stop 06/25/18 at 23:25 ; Status DC Olanzapine (ZyPREXA ZYDIS) 2.5 mg PRN Q2HR PRN PO agitation/anxiey Last administered on 07/06/18at 11:12; Start 06/25/18 at 23:30 Lorazepam (Ativan) 0.5 mg PRN Q4HRS PRN PO ANXIETY / AGITATION Last administered on 06/30/18at 05:51; Start 06/25/18 at 23:30 Olanzapine (ZyPREXA) 10 mg HS PO Last administered on 07/03/18 19:35; Start at 21:00; Stop 07/04/18 at 11:51; Status DC Mirtazapine (Remeron) 22.5 mg QHS PO Last administered on 07/06/18 19:10; Start 06/27/18 at 21:00 Cefdinir (Omnicef) 300 mg BID PO Last administered on 07/06/18 08:05; Start at 21:00; Stop 07/06/18 at 20:59; Status DC Lactobacillus Rhamnosus (Culturelle) 1 cap BID PO Last administered on 19:08; Start 06/29/18 at 21:00 Benztropine Mesylate (Cogentin) 0.5 mg BID PO Last administered on 07/04/18 07 :56; Start 06/30/18 at 21:00; Stop 07/04/18 at 11:51; Status DC Divalproex Sodium (Depakote Sprinkles) 125 mg BID PO Last administered on 19:08; Start 06/30/18 at 21:00 Dextrose/Lactated Ringer's 1,000 ml @ 200 mls/hr 1X ONCE IV Last administered on 07/01/18 17:29; Start 07/01/18 at 17:30; Stop 07/01/18 at 22:29 ; Status DC Potassium Chloride (Klor-Con) 40 meq 1X ONCE PO Last administered on 19:13; Start 07/01/18 at 18:30; Stop 07/01/18 at 18:31; Status DC Benztropine Mesylate (Cogentin) 0.5 mg DAILY PO Last administered on 07/06/18 08:05; Start 07/05/18 at 09:00; Stop 07/06/18 at 11:00; Status DC Olanzapine (ZyPREXA) 5 mg HS PO Last administered on 07/06/18 19:10; Start at 21:00 Trazodone HCl (Desyrel) 50 mg PRN QHS PRN PO insomnia Last administered on 07/06at 21:59; Start 07/06/18 at 21:45 Active Scripts Active Reported Mirtazapine 15 Mg Tablet 15 Mg PO QHS Metoprolol Tartrate 25 Mg Tablet 25 Mg PO BID Lorazepam 0.5 Mg Tablet 0.5 Mg PO DAILY Lisinopril 5 Mg Tablet 5 Mg PO DAILY Atorvastatin Calcium 40 Mg Tablet 40 Mg PO DAILY Aspirin 81 Mg Tab.chew 81 Mg PO DAILY I have reviewed the current psychotropics carefully including drug interactions. Risk benefit ratio favors no change other than as noted in my dictated progress note. Diagnosis: Problems: (1) Anxiety disorder (2) Dementia in Alzheimer's disease with delusions (3) Dementia in Alzheimer's disease with depression (4) Dementia, vascular, with delusions (5) Dementia, vascular, with depression (6) Impulse control disorder COLTON TAYLOR MD Jul 06, 2018 23:00
[2018-07-07 06:02] VITALS: BP 123/81
[2018-07-07] MEDS: ASPIRIN 81 MG TAB.CHEW PO SCH (07:36)
[2018-07-07] MEDS: LORazepam 0.5 MG TABLET PO SCH (07:36)
[2018-07-07] MEDS: DIVALPROEX 125 MG CAP.SPRINK PO SCH ×2 (07:37→19:09)
[2018-07-07] MEDS: ATORVASTATIN CALCIUM 20 MG TABLET PO SCH (07:37)
[2018-07-07] MEDS: METOPROLOL TART IMMED RELEASE 25 MG TABLET PO SCH ×2 (07:38→19:11)
[2018-07-07] MEDS: LISINOPRIL 5 MG TABLET. PO SCH (07:39)
[2018-07-07] MEDS: LACTOBACILLUS RHAMNOSUS GG 1 CAPSULE. PO SCH ×3 (07:40→19:09)
[2018-07-07 16:33] VITALS: BP 99/65
[2018-07-07] MEDS: MIRTAZAPINE 15 MG TABLET PO SCH (19:09)
[2018-07-07] MEDS: OLANZapine 10 MG TABLET PO SCH (19:09)
--- NOTE | 2018-07-07 22:33 | PDOC ---
Exam Note: Estuardo Note: Please also refer to the separate dictated note~for this date of service dictated separately.~Patient seen individually. Discussed the patient with Nursing staff reviewed the chart.~Reviewed interim history and current functioning. Reviewed vital signs,~Labs/ Radiology~and current medications noted below. Continue current treatment with the changes noted in the dictated addendum note Assessment: Vital Signs: Vital Signs Date Time Temp Pulse Resp B/P (MAP) Pulse Ox O2 Delivery O2 Flow Rate FiO2 07/07/18 19:11 91 99/65 07/07/18 16:33 97.3 17 97 Room Air I&O Intake and Output 07/07/18 07:00 Intake Total 600 ml Balance 600 ml Intake Oral 600 ml Current Medications: Meds: Current Medications Nitrofurantoin Macrocrystals (Macrobid) 100 mg 1X ONCE PO Last administered on 06/25/18 12:23; Start 06/25/18 at 12:30; Stop 06/25/18 at 12:31; Status DC Metoprolol Tartrate (Lopressor) 25 mg BID PO Last administered on 07/07/18at 07: 38; Start 06/25/18 at 21:00 Aspirin (Children'S Aspirin) 81 mg DAILYWBKFT PO Last administered on 07:36; Start 06/26/18 at 08:00 Lisinopril (Prinivil) 5 mg DAILY PO Last administered on 07/07/18at 07:39; Start 06/26/18 at 09:00 Atorvastatin Calcium (Lipitor) 40 mg DAILY PO Last administered on 07/07/18at 07 :37; Start 06/26/18 at 09:00 Lorazepam (Ativan) 0.5 mg DAILY PO Last administered on 07/07/18at 07:36; Start 06/26/18 at 09:00 Mirtazapine (Remeron) 15 mg QHS PO Last administered on 06/26/18at 20:31; Start 06/25/18 at 21:00; Stop 06/27/18 at 16:44; Status DC Acetaminophen (Tylenol) 650 mg PRN Q6HRS PRN PO PAIN / TEMP; Start 06/25/18 at 15:00 Multi-Ingredient Ointment (Analgesic [place]) 1 bunny PRN QID PRN TP MUSCLE PAIN; Start 06/25/18 at 15:00 Al Hydroxide/Mg Hydroxide (Mylanta Plus Xs) 15 ml PRN AFTMEALHC PRN PO DYSPEPSIA; Start 06/25/18 at 15:00 Magnesium Hydroxide (Milk Of Magnesia) 2,400 mg PRN QHS PRN PO CONSTIPATION; Start 06/25/18 at 15:00 Olanzapine (ZyPREXA ZYDIS) 2.5 mg PRN DAILY PRN PO agitation/anxiey Last administered on 06/25/18at 20:55; Start 06/25/18 at 17:00; Stop 06/25/18 at 23:25 ; Status DC Olanzapine (ZyPREXA ZYDIS) 2.5 mg PRN Q2HR PRN PO agitation/anxiey Last administered on 07/07/18 16:10; Start 06/25/18 at 23:30 Lorazepam (Ativan) 0.5 mg PRN Q4HRS PRN PO ANXIETY / AGITATION Last administered on 06/30/18 05:51; Start 06/25/18 at 23:30 Olanzapine (ZyPREXA) 10 mg HS PO Last administered on 07/03/18 19:35; Start at 21:00; Stop 07/04/18 at 11:51; Status DC Mirtazapine (Remeron) 22.5 mg QHS PO Last administered on 07/07/18 19:09; Start 06/27/18 at 21:00 Cefdinir (Omnicef) 300 mg BID PO Last administered on 07/06/18 08:05; Start at 21:00; Stop 07/06/18 at 20:59; Status DC Lactobacillus Rhamnosus (Culturelle) 1 cap BID PO Last administered on 19:09; Start 06/29/18 at 21:00; Stop 07/09/18 at 20:59 Benztropine Mesylate (Cogentin) 0.5 mg BID PO Last administered on 07/04/18 07 :56; Start 06/30/18 at 21:00; Stop 07/04/18 at 11:51; Status DC Divalproex Sodium (Depakote Sprinkles) 125 mg BID PO Last administered on 19:09; Start 06/30/18 at 21:00 Dextrose/Lactated Ringer's 1,000 ml @ 200 mls/hr 1X ONCE IV Last administered on 07/01/18at 17:29; Start 07/01/18 at 17:30; Stop 07/01/18 at 22:29 ; Status DC Potassium Chloride (Klor-Con) 40 meq 1X ONCE PO Last administered on at 19:13; Start 07/01/18 at 18:30; Stop 07/01/18 at 18:31; Status DC Benztropine Mesylate (Cogentin) 0.5 mg DAILY PO Last administered on 07/06/18 08:05; Start 07/05/18 at 09:00; Stop 07/06/18 at 11:00; Status DC Olanzapine (ZyPREXA) 5 mg HS PO Last administered on 07/07/18at 19:09; Start at 21:00 Trazodone HCl (Desyrel) 50 mg PRN QHS PRN PO insomnia; Start 07/06/18 at 21:45 Active Scripts Active Reported Mirtazapine 15 Mg Tablet 15 Mg PO QHS Metoprolol Tartrate 25 Mg Tablet 25 Mg PO BID Lorazepam 0.5 Mg Tablet 0.5 Mg PO DAILY Lisinopril 5 Mg Tablet 5 Mg PO DAILY Atorvastatin Calcium 40 Mg Tablet 40 Mg PO DAILY Aspirin 81 Mg Tab.chew 81 Mg PO DAILY I have reviewed the current psychotropics carefully including drug interactions. Risk benefit ratio favors no change other than as noted in my dictated progress note. Diagnosis: Problems: (1) Anxiety disorder (2) Dementia in Alzheimer's disease with delusions (3) Dementia in Alzheimer's disease with depression (4) Dementia, vascular, with delusions (5) Dementia, vascular, with depression (6) Impulse control disorder COLTON TAYLOR MD Jul 07, 2018 22:33
[2018-07-08 04:40] VITALS: BP 100/65
[2018-07-08] MEDS: ASPIRIN 81 MG TAB.CHEW PO SCH (08:03)
[2018-07-08] MEDS: DIVALPROEX 125 MG CAP.SPRINK PO SCH ×2 (08:07→19:14)
[2018-07-08] MEDS: LACTOBACILLUS RHAMNOSUS GG 1 CAPSULE. PO SCH ×2 (08:07→19:16)
[2018-07-08] MEDS: ATORVASTATIN CALCIUM 20 MG TABLET PO SCH (08:07)
[2018-07-08] MEDS: LORazepam 0.5 MG TABLET PO SCH (08:07)
[2018-07-08] MEDS: LISINOPRIL 5 MG TABLET. PO SCH (09:00)
[2018-07-08] MEDS: METOPROLOL TART IMMED RELEASE 25 MG TABLET PO SCH ×2 (09:00→19:51)
[2018-07-08] MEDS: LORazepam 0.5 MG TABLET PO PRN (16:22)
[2018-07-08 16:48] VITALS: BP 95/68
--- NOTE | 2018-07-08 19:06 | PN ---
DATE: 07/06/2018 PSYCHIATRIC PROGRESS NOTE This late entry 07/06/2018 covers elements not covered in my initial note 07/06/2018. SUBJECTIVE: I met with the patient late in the evening 07/06/2018. The patient remains confused, slept 7-1/4 hours previous night. Valproic acid level is 37 on 07/06/2018. On further review, patient in fact slept 5-1/4 hours previous night. She continues to be confused, wanders the unit, not aggressive. REVIEW OF SYSTEMS: No CV, , pulmonary, eye, ENT system symptoms on review. Reliability poor. MENTAL STATUS EXAM: Oriented to herself. Insight, judgment, recent and remote memory, attention, concentration, fund of knowledge poor, consistent with her diagnosis mentioned in my initial note. PLAN: Start trazodone 50 mg at bedtime p.r.n. insomnia. Continue rest unchanged from initial note. COLTON TAYLOR MD DR: YOLANDA/reji JOB#: [id number] / [id number]
--- NOTE | 2018-07-08 19:07 | PN ---
DATE: 07/07/2018 PSYCHIATRIC PROGRESS NOTE This late entry 07/07/2018 covers elements not covered in my initial note. SUBJECTIVE: I met with the patient in the evening of 07/07/2018. The patient slept 7-1/4 hours previous night, better since trazodone was added the previous night. She remains confused, wanders the hallways, not aggressive. REVIEW OF SYSTEMS: No CV, , pulmonary, eye, ENT system symptoms on review. Reliability poor. MENTAL STATUS EXAM: Oriented to herself. Insight, judgment, recent and remote memory, attention, concentration, fund of knowledge poor, consistent with her diagnosis mentioned in my initial note. PLAN: No change from initial note. MAN Nam TAYLOR MD DR: YOLANDA/reji JOB#: [id number] / [id number]
[2018-07-08] MEDS: OLANZapine 10 MG TABLET PO SCH (19:15)
[2018-07-08] MEDS: MIRTAZAPINE 15 MG TABLET PO SCH (19:16)
[2018-07-08 19:48] VITALS: BP 148/55
--- NOTE | 2018-07-08 19:58 | PN ---
DATE: 07/06/2018 ADDENDUM This note is being dictated as a clarification that my dictation number [id number] was on this patient for date of service 07/06/2018 and dictated as a late entry on 07/08/2018. Rest of the elements and that note remained pertinent. MAN Nam TAYLOR MD DR: YOLANDA/reji JOB#: [id number] / [id number]
--- NOTE | 2018-07-08 22:33 | PDOC ---
Exam Note: Estuardo Note: Please also refer to the separate dictated note~for this date of service dictated separately.~Patient seen individually. Discussed the patient with Nursing staff reviewed the chart.~Reviewed interim history and current functioning. Reviewed vital signs,~Labs/ Radiology~and current medications noted below. Continue current treatment with the changes noted in the dictated addendum note Assessment: Vital Signs: Vital Signs Date Time Temp Pulse Resp B/P (MAP) Pulse Ox O2 Delivery O2 Flow Rate FiO2 07/08/18 19:51 63 148/55 07/08/18 19:48 97.6 16 96 Room Air I&O Intake and Output 07/08/18 07:00 Intake Total 1080 ml Balance 1080 ml Intake Oral 1080 ml Current Medications: Meds: Current Medications Nitrofurantoin Macrocrystals (Macrobid) 100 mg 1X ONCE PO Last administered on 06/25/18 12:23; Start 06/25/18 at 12:30; Stop 06/25/18 at 12:31; Status DC Metoprolol Tartrate (Lopressor) 25 mg BID PO Last administered on 07/08/18at 19: 51; Start 06/25/18 at 21:00 Aspirin (Children'S Aspirin) 81 mg DAILYWBKFT PO Last administered on 08:03; Start 06/26/18 at 08:00 Lisinopril (Prinivil) 5 mg DAILY PO Last administered on 07/07/18at 07:39; Start 06/26/18 at 09:00 Atorvastatin Calcium (Lipitor) 40 mg DAILY PO Last administered on 07/08/18 08 :07; Start 06/26/18 at 09:00 Lorazepam (Ativan) 0.5 mg DAILY PO Last administered on 07/08/18at 08:07; Start 06/26/18 at 09:00 Mirtazapine (Remeron) 15 mg QHS PO Last administered on 06/26/18at 20:31; Start 06/25/18 at 21:00; Stop 06/27/18 at 16:44; Status DC Acetaminophen (Tylenol) 650 mg PRN Q6HRS PRN PO PAIN / TEMP; Start 06/25/18 at 15:00 Multi-Ingredient Ointment (Analgesic [place]) 1 bunny PRN QID PRN TP MUSCLE PAIN; Start 06/25/18 at 15:00 Al Hydroxide/Mg Hydroxide (Mylanta Plus Xs) 15 ml PRN AFTMEALHC PRN PO DYSPEPSIA; Start 06/25/18 at 15:00 Magnesium Hydroxide (Milk Of Magnesia) 2,400 mg PRN QHS PRN PO CONSTIPATION; Start 06/25/18 at 15:00 Olanzapine (ZyPREXA ZYDIS) 2.5 mg PRN DAILY PRN PO agitation/anxiey Last administered on 06/25/18 20:55; Start 06/25/18 at 17:00; Stop 06/25/18 at 23:25 ; Status DC Olanzapine (ZyPREXA ZYDIS) 2.5 mg PRN Q2HR PRN PO agitation/anxiey Last administered on 07/08/18 16:22; Start 06/25/18 at 23:30 Lorazepam (Ativan) 0.5 mg PRN Q4HRS PRN PO ANXIETY / AGITATION Last administered on 07/08/18 16:22; Start 06/25/18 at 23:30 Olanzapine (ZyPREXA) 10 mg HS PO Last administered on 07/03/18 19:35; Start at 21:00; Stop 07/04/18 at 11:51; Status DC Mirtazapine (Remeron) 22.5 mg QHS PO Last administered on 07/08/18 19:16; Start 06/27/18 at 21:00 Cefdinir (Omnicef) 300 mg BID PO Last administered on 07/06/18 08:05; Start at 21:00; Stop 07/06/18 at 20:59; Status DC Lactobacillus Rhamnosus (Culturelle) 1 cap BID PO Last administered on 19:16; Start 06/29/18 at 21:00; Stop 07/09/18 at 20:59 Benztropine Mesylate (Cogentin) 0.5 mg BID PO Last administered on 07/04/18 07 :56; Start 06/30/18 at 21:00; Stop 07/04/18 at 11:51; Status DC Divalproex Sodium (Depakote Sprinkles) 125 mg BID PO Last administered on 19:14; Start 06/30/18 at 21:00 Dextrose/Lactated Ringer's 1,000 ml @ 200 mls/hr 1X ONCE IV Last administered on 07/01/18at 17:29; Start 07/01/18 at 17:30; Stop 07/01/18 at 22:29 ; Status DC Potassium Chloride (Klor-Con) 40 meq 1X ONCE PO Last administered on at 19:13; Start 07/01/18 at 18:30; Stop 07/01/18 at 18:31; Status DC Benztropine Mesylate (Cogentin) 0.5 mg DAILY PO Last administered on 07/06/18at 08:05; Start 07/05/18 at 09:00; Stop 07/06/18 at 11:00; Status DC Olanzapine (ZyPREXA) 5 mg HS PO Last administered on 07/08/18at 19:15; Start at 21:00 Trazodone HCl (Desyrel) 50 mg PRN QHS PRN PO insomnia; Start 07/06/18 at 21:45 Olanzapine (ZyPREXA) 1.25 mg 1500 PO ; Start 07/09/18 at 15:00 Active Scripts Active Reported Mirtazapine 15 Mg Tablet 15 Mg PO QHS Metoprolol Tartrate 25 Mg Tablet 25 Mg PO BID Lorazepam 0.5 Mg Tablet 0.5 Mg PO DAILY Lisinopril 5 Mg Tablet 5 Mg PO DAILY Atorvastatin Calcium 40 Mg Tablet 40 Mg PO DAILY Aspirin 81 Mg Tab.chew 81 Mg PO DAILY I have reviewed the current psychotropics carefully including drug interactions. Risk benefit ratio favors no change other than as noted in my dictated progress note. Diagnosis: Problems: (1) Anxiety disorder (2) Dementia in Alzheimer's disease with delusions (3) Dementia in Alzheimer's disease with depression (4) Dementia, vascular, with delusions (5) Dementia, vascular, with depression (6) Impulse control disorder COLTON TAYLOR MD Jul 08, 2018 22:33
[2018-07-08] MEDS: traZODone 50 MG TABLET. PO PRN (22:46)
[2018-07-09 05:54] VITALS: BP 111/68
[2018-07-09] MEDS: DIVALPROEX 125 MG CAP.SPRINK PO SCH ×2 (07:52→20:21)
[2018-07-09] MEDS: LACTOBACILLUS RHAMNOSUS GG 1 CAPSULE. PO SCH (07:52)
[2018-07-09] MEDS: ASPIRIN 81 MG TAB.CHEW PO SCH (07:52)
[2018-07-09] MEDS: LORazepam 0.5 MG TABLET PO SCH (07:52)
[2018-07-09] MEDS: ATORVASTATIN CALCIUM 20 MG TABLET PO SCH (07:52)
[2018-07-09] MEDS: METOPROLOL TART IMMED RELEASE 25 MG TABLET PO SCH ×3 (07:53→19:18)
[2018-07-09] MEDS: LISINOPRIL 5 MG TABLET. PO SCH ×2 (07:53→07:56)
[2018-07-09] MEDS ORDERED: OLANZapine 2.5 MG TABLET PO SCH (15:00)
[2018-07-09 16:10] VITALS: BP 106/75
[2018-07-09] MEDS: OLANZapine 10 MG TABLET PO SCH (20:22)
[2018-07-09] MEDS: MIRTAZAPINE 15 MG TABLET PO SCH (20:23)
--- NOTE | 2018-07-09 21:26 | PN ---
DATE: 07/08/2018 PSYCHIATRIC PROGRESS NOTE This late entry 07/08/2018 covers elements not covered in my initial note. SUBJECTIVE: I met with the patient in the evening. The patient slept 6-1/4 hours previous night. She did well until about 1630 p.m. and then was agitated in the vest hallway, received Zyprexa and Ativan, which seemed to help. She was hallucinating actively and staff had called me and we had added Zyprexa p.r.n. and 1.25 mg at 3 p.m. REVIEW OF SYSTEMS: No CV, , pulmonary, eye, ENT system symptoms on review. Reliability poor. MENTAL STATUS EXAM: Oriented to herself. Insight, judgment, recent and remote memory, attention, concentration, fund of knowledge poor consistent with her diagnosis mentioned in my initial note. PLAN: No change from initial note other than above. COLTON TAYLOR MD DR: YOLANDA/reji JOB#: [id number] / [id number]
--- NOTE | 2018-07-09 22:52 | PDOC ---
Exam Note: Estuardo Note: Please also refer to the separate dictated note~for this date of service dictated separately.~Patient seen individually. Discussed the patient with Nursing staff reviewed the chart.~Reviewed interim history and current functioning. Reviewed vital signs,~Labs/ Radiology~and current medications noted below. Continue current treatment with the changes noted in the dictated addendum note Assessment: Vital Signs: Vital Signs Date Time Temp Pulse Resp B/P (MAP) Pulse Ox O2 Delivery O2 Flow Rate FiO2 07/09/18 19:18 86 106/75 07/09/18 16:10 97.8 20 98 Room Air I&O Intake and Output 07/09/18 07:00 Intake Total 360 ml Balance 360 ml Intake Oral 360 ml Current Medications: Meds: Current Medications Nitrofurantoin Macrocrystals (Macrobid) 100 mg 1X ONCE PO Last administered on 06/25/18 12:23; Start 06/25/18 at 12:30; Stop 06/25/18 at 12:31; Status DC Metoprolol Tartrate (Lopressor) 25 mg BID PO Last administered on 07/09/18 07: 57; Start 06/25/18 at 21:00 Aspirin (Children'S Aspirin) 81 mg DAILYWBKFT PO Last administered on 07:52; Start 06/26/18 at 08:00 Lisinopril (Prinivil) 5 mg DAILY PO Last administered on 07/09/18 07:56; Start 06/26/18 at 09:00; Stop 07/09/18 at 14:50; Status DC Atorvastatin Calcium (Lipitor) 40 mg DAILY PO Last administered on 07/09/18 07 :52; Start 06/26/18 at 09:00 Lorazepam (Ativan) 0.5 mg DAILY PO Last administered on 07/09/18at 07:52; Start 06/26/18 at 09:00 Mirtazapine (Remeron) 15 mg QHS PO Last administered on 06/26/18at 20:31; Start 06/25/18 at 21:00; Stop 06/27/18 at 16:44; Status DC Acetaminophen (Tylenol) 650 mg PRN Q6HRS PRN PO PAIN / TEMP; Start 06/25/18 at 15:00 Multi-Ingredient Ointment (Analgesic [place]) 1 bunny PRN QID PRN TP MUSCLE PAIN; Start 06/25/18 at 15:00 Al Hydroxide/Mg Hydroxide (Mylanta Plus Xs) 15 ml PRN AFTMEALHC PRN PO DYSPEPSIA; Start 06/25/18 at 15:00 Magnesium Hydroxide (Milk Of Magnesia) 2,400 mg PRN QHS PRN PO CONSTIPATION; Start 06/25/18 at 15:00 Olanzapine (ZyPREXA ZYDIS) 2.5 mg PRN DAILY PRN PO agitation/anxiey Last administered on 06/25/18at 20:55; Start 06/25/18 at 17:00; Stop 06/25/18 at 23:25 ; Status DC Olanzapine (ZyPREXA ZYDIS) 2.5 mg PRN Q2HR PRN PO agitation/anxiey Last administered on 07/09/18at 12:13; Start 06/25/18 at 23:30 Lorazepam (Ativan) 0.5 mg PRN Q4HRS PRN PO ANXIETY / AGITATION Last administered on 07/08/18at 16:22; Start 06/25/18 at 23:30 Olanzapine (ZyPREXA) 10 mg HS PO Last administered on 07/03/18at 19:35; Start at 21:00; Stop 07/04/18 at 11:51; Status DC Mirtazapine (Remeron) 22.5 mg QHS PO Last administered on 07/09/18 20:23; Start 06/27/18 at 21:00 Cefdinir (Omnicef) 300 mg BID PO Last administered on 07/06/18at 08:05; Start at 21:00; Stop 07/06/18 at 20:59; Status DC Lactobacillus Rhamnosus (Culturelle) 1 cap BID PO Last administered on 07:52; Start 06/29/18 at 21:00; Stop 07/09/18 at 20:59; Status DC Benztropine Mesylate (Cogentin) 0.5 mg BID PO Last administered on 07/04/18at 07 :56; Start 06/30/18 at 21:00; Stop 07/04/18 at 11:51; Status DC Divalproex Sodium (Depakote Sprinkles) 125 mg BID PO Last administered on 20:21; Start 06/30/18 at 21:00 Dextrose/Lactated Ringer's 1,000 ml @ 200 mls/hr 1X ONCE IV Last administered on 07/01/18 17:29; Start 07/01/18 at 17:30; Stop 07/01/18 at 22:29 ; Status DC Potassium Chloride (Klor-Con) 40 meq 1X ONCE PO Last administered on 19:13; Start 07/01/18 at 18:30; Stop 07/01/18 at 18:31; Status DC Benztropine Mesylate (Cogentin) 0.5 mg DAILY PO Last administered on 07/06/18 08:05; Start 07/05/18 at 09:00; Stop 07/06/18 at 11:00; Status DC Olanzapine (ZyPREXA) 5 mg HS PO Last administered on 07/09/18 20:22; Start at 21:00 Trazodone HCl (Desyrel) 50 mg PRN QHS PRN PO insomnia Last administered on 07/08 22:46; Start 07/06/18 at 21:45 Olanzapine (ZyPREXA) 1.25 mg 1500 PO Last administered on 07/09/18 14:56; Start 07/09/18 at 15:00 Active Scripts Active Reported Mirtazapine 15 Mg Tablet 15 Mg PO QHS Metoprolol Tartrate 25 Mg Tablet 25 Mg PO BID Lorazepam 0.5 Mg Tablet 0.5 Mg PO DAILY Lisinopril 5 Mg Tablet 5 Mg PO DAILY Atorvastatin Calcium 40 Mg Tablet 40 Mg PO DAILY Aspirin 81 Mg Tab.chew 81 Mg PO DAILY I have reviewed the current psychotropics carefully including drug interactions. Risk benefit ratio favors no change other than as noted in my dictated progress note. Diagnosis: Problems: (1) Anxiety disorder (2) Dementia in Alzheimer's disease with delusions (3) Dementia in Alzheimer's disease with depression (4) Dementia, vascular, with delusions (5) Dementia, vascular, with depression (6) Impulse control disorder COLTON TAYLOR MD Jul 09, 2018 22:52
[2018-07-10] MEDS ORDERED: ACET325T21 PO (01:57)
[2018-07-10] MEDS ORDERED: DIVA125C2 PO (01:58)
[2018-07-10] MEDS ORDERED: LORA0.5T PO (01:59)
[2018-07-10] MEDS ORDERED: MAG355OR11 PO (01:59)
[2018-07-10] MEDS ORDERED: MAGN2400 PO (02:00)
[2018-07-10] MEDS ORDERED: METH29OI TP (02:00)
[2018-07-10] MEDS ORDERED: OLAN5TAB9 PO ×2 (02:01→02:02)
[2018-07-10] MEDS ORDERED: MIRT15TA3 PO (02:01)
[2018-07-10] MEDS ORDERED: OLAN5TAB5 PO (02:03)
[2018-07-10] MEDS ORDERED: TRAZ-120 PO (02:03)
[2018-07-10 05:56] VITALS: BP 142/75
[2018-07-10] MEDS: ASPIRIN 81 MG TAB.CHEW PO SCH (07:26)
[2018-07-10] MEDS: ATORVASTATIN CALCIUM 20 MG TABLET PO SCH (07:26)
[2018-07-10] MEDS: DIVALPROEX 125 MG CAP.SPRINK PO SCH (07:26)
[2018-07-10 07:27] VITALS: BP 142/75
[2018-07-10] MEDS: METOPROLOL TART IMMED RELEASE 25 MG TABLET PO SCH (07:27)
[2018-07-10] MEDS: LORazepam 0.5 MG TABLET PO SCH (07:28)
--- NOTE | 2018-07-10 19:32 | PN ---
DATE: 07/09/2018 This is a late entry 07/09/2018 covers elements not covered in my initial note. SUBJECTIVE: I met with the patient in the evening. The patient slept 3-3/4 hours previous night. She remains confused, but redirectable. She has been accepted at [facility]. She received Zyprexa at 12:15 p.m. and Zyprexa and trazodone at night to help her sleep. REVIEW OF SYSTEMS: No CV, , pulmonary, eye, ENT system symptoms on review. Reliability poor. MENTAL STATUS EXAM: Oriented to herself. Insight, judgment, recent and remote memory, attention, concentration, fund of knowledge poor, consistent with her diagnosis mentioned in my initial note. PLAN: No change from initial note and transition to halfway on 07/10/2018. MAN Nam TAYLOR MD DR: YOLANDA/reji JOB#: [id number] / [id number]
--- NOTE | 2018-07-10 23:13 | PDOC ---
Exam Note: Estuardo Note: Please also refer to the separate dictated note~for this date of service dictated separately.~Patient seen individually. Discussed the patient with Nursing staff reviewed the chart.~Reviewed interim history and current functioning. Reviewed vital signs,~Labs/ Radiology~and current medications noted below. Continue current treatment with the changes noted in the dictated addendum note Assessment: Vital Signs: Vital Signs Date Time Temp Pulse Resp B/P (MAP) Pulse Ox O2 Delivery O2 Flow Rate FiO2 07/10/18 07:27 90 142/75 07/10/18 05:56 97.2 20 100 07/09/18 16:10 Room Air I&O Intake and Output 07/10/18 06:59 Intake Total 720 ml Balance 720 ml Intake Oral 720 ml Current Medications: Meds: Current Medications Nitrofurantoin Macrocrystals (Macrobid) 100 mg 1X ONCE PO Last administered on 06/25/18 12:23; Start 06/25/18 at 12:30; Stop 06/25/18 at 12:31; Status DC Metoprolol Tartrate (Lopressor) 25 mg BID PO Last administered on 07/10/18 07: 27; Start 06/25/18 at 21:00; Stop 07/10/18 at 10:45; Status DC Aspirin (Children'S Aspirin) 81 mg DAILYWBKFT PO Last administered on 07:26; Start 06/26/18 at 08:00; Stop 07/10/18 at 10:45; Status DC Lisinopril (Prinivil) 5 mg DAILY PO Last administered on 07/09/18 07:56; Start 06/26/18 at 09:00; Stop 07/09/18 at 14:50; Status DC Atorvastatin Calcium (Lipitor) 40 mg DAILY PO Last administered on 07/10/18 07 :26; Start 06/26/18 at 09:00; Stop 07/10/18 at 10:45; Status DC Lorazepam (Ativan) 0.5 mg DAILY PO Last administered on 07/10/18 07:28; Start 06/26/18 at 09:00; Stop 07/10/18 at 10:45; Status DC Mirtazapine (Remeron) 15 mg QHS PO Last administered on 06/26/18at 20:31; Start 06/25/18 at 21:00; Stop 06/27/18 at 16:44; Status DC Acetaminophen (Tylenol) 650 mg PRN Q6HRS PRN PO PAIN / TEMP; Start 06/25/18 at 15:00; Stop 07/10/18 at 10:45; Status DC Multi-Ingredient Ointment (Analgesic [place]) 1 miguel PRN QID PRN TP MUSCLE PAIN; Start 06/25/18 at 15:00; Stop 07/10/18 at 10:45; Status DC Al Hydroxide/Mg Hydroxide (Mylanta Plus Xs) 15 ml PRN AFTMEALHC PRN PO DYSPEPSIA; Start 06/25/18 at 15:00; Stop 07/10/18 at 10:45; Status DC Magnesium Hydroxide (Milk Of Magnesia) 2,400 mg PRN QHS PRN PO CONSTIPATION; Start 06/25/18 at 15:00; Stop 07/10/18 at 10:45; Status DC Olanzapine (ZyPREXA ZYDIS) 2.5 mg PRN DAILY PRN PO agitation/anxiey Last administered on 06/25/18at 20:55; Start 06/25/18 at 17:00; Stop 06/25/18 at 23:25 ; Status DC Olanzapine (ZyPREXA ZYDIS) 2.5 mg PRN Q2HR PRN PO agitation/anxiey Last administered on 07/09/18at 12:13; Start 06/25/18 at 23:30; Stop 07/10/18 at 10:45 ; Status DC Lorazepam (Ativan) 0.5 mg PRN Q4HRS PRN PO ANXIETY / AGITATION Last administered on 07/08/18at 16:22; Start 06/25/18 at 23:30; Stop 07/10/18 at 10:45 ; Status DC Olanzapine (ZyPREXA) 10 mg HS PO Last administered on 07/03/18at 19:35; Start at 21:00; Stop 07/04/18 at 11:51; Status DC Mirtazapine (Remeron) 22.5 mg QHS PO Last administered on 07/09/18at 20:23; Start 06/27/18 at 21:00; Stop 07/10/18 at 10:45; Status DC Cefdinir (Omnicef) 300 mg BID PO Last administered on 07/06/18 08:05; Start at 21:00; Stop 07/06/18 at 20:59; Status DC Lactobacillus Rhamnosus (Culturelle) 1 cap BID PO Last administered on 07:52; Start 06/29/18 at 21:00; Stop 07/09/18 at 20:59; Status DC Benztropine Mesylate (Cogentin) 0.5 mg BID PO Last administered on 07/04/18 07 :56; Start 06/30/18 at 21:00; Stop 07/04/18 at 11:51; Status DC Divalproex Sodium (Depakote Sprinkles) 125 mg BID PO Last administered on 07:26; Start 06/30/18 at 21:00; Stop 07/10/18 at 10:45; Status DC Dextrose/Lactated Ringer's 1,000 ml @ 200 mls/hr 1X ONCE IV Last administered on 07/01/18 17:29; Start 07/01/18 at 17:30; Stop 07/01/18 at 22:29 ; Status DC Potassium Chloride (Klor-Con) 40 meq 1X ONCE PO Last administered on 19:13; Start 07/01/18 at 18:30; Stop 07/01/18 at 18:31; Status DC Benztropine Mesylate (Cogentin) 0.5 mg DAILY PO Last administered on 07/06/18 08:05; Start 07/05/18 at 09:00; Stop 07/06/18 at 11:00; Status DC Olanzapine (ZyPREXA) 5 mg HS PO Last administered on 07/09/18 20:22; Start at 21:00; Stop 07/10/18 at 10:45; Status DC Trazodone HCl (Desyrel) 50 mg PRN QHS PRN PO insomnia Last administered on 07/08 22:46; Start 07/06/18 at 21:45; Stop 07/10/18 at 10:45; Status DC Olanzapine (ZyPREXA) 1.25 mg 1500 PO Last administered on 07/09/18at 14:56; Start 07/09/18 at 15:00; Stop 07/10/18 at 10:45; Status DC Active Scripts Active Reported Trazodone Hcl 50 Mg Tablet 50 Mg PO PRN QHS PRN Zyprexa Zydis (Olanzapine) 5 Mg Tab.rapdis 2.5 Mg PO PRN Q2HR PRN Olanzapine 5 Mg Tablet 1.25 Mg PO DAILY AT 1500 Olanzapine 5 Mg Tablet 5 Mg PO HS Mirtazapine 15 Mg Tablet 22.5 Mg PO HS Analgesic [place] (Methyl Salicylate/Menthol) 28 Gm Oint...g. 1 Miguel TP PRN QID PRN Milk Of Magnesia (Magnesium Hydroxide) 2,400 Mg/10 Ml Oral.susp 2,400 Mg PO PRN QHS PRN Maalox Advanced Suspension (Mag Hydrox/Aluminum Hyd/Simeth) 355 Ml Oral.susp 15 Ml PO PRN AFTMEALHC PRN Lorazepam 0.5 Mg Tablet 0.5 Mg PO PRN Q4HRS PRN Depakote Sprinkle (Divalproex Sodium) 125 Mg Cap.sprink 125 Mg PO BID Acetaminophen 325 Mg Tablet 650 Mg PO PRN Q6HRS PRN Metoprolol Tartrate 25 Mg Tablet 25 Mg PO BID Lorazepam 0.5 Mg Tablet 0.5 Mg PO DAILY Atorvastatin Calcium 40 Mg Tablet 40 Mg PO DAILY Aspirin 81 Mg Tab.chew 81 Mg PO DAILY I have reviewed the current psychotropics carefully including drug interactions. Risk benefit ratio favors no change other than as noted in my dictated progress note. Diagnosis: Problems: (1) Anxiety disorder (2) Dementia in Alzheimer's disease with delusions (3) Dementia in Alzheimer's disease with depression (4) Dementia, vascular, with delusions (5) Dementia, vascular, with depression (6) Impulse control disorder COLTON TAYLOR MD Jul 10, 2018 23:13
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
== END 2018-07-10 10:21 | DRG 57 ==
LOC: ER 10:49 → GEROPSY 13:00
PROVIDERS: ADMIT Psychiatry & Neurology Psychiatry; ATTEND Psychiatry & Neurology Psychiatry
DX: G30.0 Alzheimer's disease with early onset (principal); F02.81 Dementia in other diseases classified elsewhere, unspecified severity, with behavioral disturbance; N39.0 Urinary tract infection, site not specified; F01.51 Vascular dementia, unspecified severity, with behavioral disturbance; F63.9 Impulse disorder, unspecified; F32.9 Major depressive disorder, single episode, unspecified; R63.4 Abnormal weight loss; E78.00 Pure hypercholesterolemia, unspecified; E78.5 Hyperlipidemia, unspecified; G47.00 Insomnia, unspecified; F41.9 Anxiety disorder, unspecified; I10 Essential (primary) hypertension; I25.10 Atherosclerotic heart disease of native coronary artery without angina pectoris; I25.2 Old myocardial infarction; R29.6 Repeated falls; Z79.899 Other long term (current) drug therapy; Z85.3 Personal history of malignant neoplasm of breast; Z87.891 Personal history of nicotine dependence; Z90.12 Acquired absence of left breast and nipple; Z88.2 Allergy status to sulfonamides; Z68.20 Body mass index [BMI] 20.0-20.9, adult; Z91.83 Wandering in diseases classified elsewhere
CPT/HCPCS: 36415; 80053; 80061; 80164; 81001; 82306; 83036; 83540; 83550; 83735; 84436; 84443; 84480; 85025; 86592; 87086; 87186; 93005; 99285-25